=== PATIENT | female | born 1945 | race Caucasian/White ===

== ENCOUNTER → 2016-08-04 | Outpatient (CLI) | payer OTHER ==
[~2016-08-04] MED LIST: BENTYL10 MG PO; CALCIUM500 MG PO; CELEXA20 MG PO; COLACE100 MG PO; HYDROCODON-ACE1 EAC5 PO; HYDROCODON-ACE1 EAC7 PO; HYDROCODON-ACE1 EACH PO; HYDROCODONE-AP1 EAC6 PO; HYDROCODONE-APA1 TA1 PO; HYSINGLA ER30 MG PO; LEXAPRO20 MG PO; LIDODERM 5%1 PATC1 TRANSDERM; LIPITOR10 MG PO; LISINOPRIL; LISINOPRIL20 MG PO; MEDROLDOSEPACK PO; MIRALAX255 GM PO; NAPROSYN500 MG PO; NORCO 10-325 T1 EACH PO; NORCO 5-325 TA1 EACH PO; OSELB75 PO; OXYCODONE HCL E10 MG PO; OXYCONTIN10 M1 PO; PRAVACHOL20 MG PO; PRAVASTATIN PO; PRINIVIL40 MG PO; PROVENTIL HFA6.7 G1 INH; VERAPAMIL ER180 M1 PO; VITAMIN B COMP1 EACH PO; ZOCOR
== END ==
LOC: ULTRA 11:54
DX: E04.1 Nontoxic single thyroid nodule (principal)

== ENCOUNTER → 2016-11-03 | Outpatient (CLI) | payer OTHER | LOC: RAD 14:09 | DX: Z12.31 Encounter for screening mammogram for malignant neoplasm of breast (principal) ==

== ENCOUNTER → 2016-12-13 | Outpatient (CLI) | payer OTHER ==
[~2016-12-13] VITALS: Ht 162.6 cm; Wt 81.8 kg
[~2016-12-13] MED LIST changes: +OMEGA-31000 M1 PO
--- NOTE | ~2016-12-13 | HPC ---
[facility] [place] [address] PAIN MANAGEMENT CONSULTATION Name: NICOLE DUKE Room #: REG ANABELA Sneha.#: [id number] Admission: 12/13/16 Attend Phys: Saran Bob MD Discharge: Date of : 47 Report #: [id number] THIS REPORT FOR: //name// CC: Wilner Bob DATE OF SERVICE: 12/13/2016 DATE OF REGISTRATION: 12/13/2016. REASON FOR VISIT: Followup visit for chronic low back pain, management of high risk medication. HISTORY OF PRESENT ILLNESS: The patient returns to pain clinic today for renewal of her pain medication. She takes about 60 hydrocodone per month, and I provided her with medication under terms of an opioid agreement. Medication helps quite a bit, and she is cautious of its use. We had a long discussion today about the hardships she is currently undergoing. Her of 44 years is going blind. She is unable to get around. She is gaining more weight. She loves him dearly, and he has a kind and gentle soul, but it is hard for her to watch him go through this, and it is also hard for her physically to care for him. We talked about ways that she can get support both emotionally and physically in the home. Her health has otherwise been good. No other medical conditions or problems since her last visit here. PHYSICAL EXAMINATION: VITAL SIGNS: Blood pressure 135/57, heart rate 65, BMI is 31.0. EXTREMITIES: She moves easily from sitting to standing position, ambulates without difficulty. She scores her pain as 2 today. BACK: Range of motion of the spine is fine. She has some localized tenderness. IMPRESSION: Chronic low back pain without radiculopathy. RECOMMENDATIONS: 1. Continue with hydrocodone 1-2 tablets a day as needed for severe pain. 2. Follow up in the pain clinic in 3 months. By: [id number] Saran Bob MD /nt
[2016-12-13 14:20] VITALS: BP 135/57
== END ==
LOC: PAIN 06:16
DX: G89.29 Other chronic pain (principal); M54.5 Low back pain

== ENCOUNTER → 2017-03-10 | Outpatient (CLI) | payer OTHER ==
[~2017-03-10] VITALS: Ht 162.6 cm; Wt 81.8 kg
--- NOTE | ~2017-03-10 | HPC ---
[facility] [place] [address] PAIN MANAGEMENT CONSULTATION Name: NICOLE DUKE Room #: REG ANABELA HooverGerald#: [id number] Admission: 03/10/17 Attend Phys: Saran Bob MD Discharge: Date of : 47 Report #: [id number] THIS REPORT FOR: //name// CC: Wilner Bob DATE OF SERVICE: 03/10/2017 Followup visit for chronic back pain. The patient returns to pain clinic today in followup for medication management. She has done very well with the small amount of hydrocodone. I provided for her 1 tablet q. 4 hours and she takes anywhere from 1 to 2 tablets, allowed 6 tablets a day. She rarely takes more than 2. Pain score with medications 3/10. She is able to do most of her activities of daily living with greater ease. In addition to her back pain, she has some numbness and tingling in her legs, but this is not constant. MEDICATIONS: Reviewed and reconciled. ALLERGIES: None. PHYSICAL EXAMINATION: GENERAL: She is pleasant, alert and oriented, without signs of overmedication. VITAL SIGNS: Her blood pressure is 138/63, heart rate 65, respirations 20. BMI is 31. MUSCULOSKELETAL: She has mild back pain across the lumbosacral segment with pain with back flexion and extension. X-rays reviewed showed extensive spondylosis and curvature subluxations. Stenosis is also noted. IMPRESSION: 1. Chronic low back pain with radiculopathy. 2. Management of high risk medication. PLAN: I renewed her hydrocodone for her at 180 tablets 1 tablet q. 4 hours as needed for pain. Plan is to follow up in the pain clinic as needed for additional medication. It should be anywhere between the next 2-3 months. The importance of our opioid agreement was reviewed and the importance of [facility] [address] [place] [address] PAIN MANAGEMENT CONSULTATION Name: NICOLE DUKE Room #: REG CLI [facility].#: [id number] Admission: 03/10/17 Attend Phys: Saran Bob MD Discharge: Date of : 46 Report #: [id number] safeguarding medication discussed. Urine drug screen has been performed in the past and is appropriate for medications provided through the clinic. By: [id number] Saran Bob MD /nt
[2017-03-10 08:22] VITALS: BP 138/63
== END | disposition home or self-care (01) ==
LOC: PAIN 06:59
DX: M47.20 Other spondylosis with radiculopathy, site unspecified (principal); G89.29 Other chronic pain

== ENCOUNTER → 2017-06-24 | Outpatient (CLI) | payer OTHER ==
[~2017-06-24] VITALS: Ht 162.6 cm; Wt 79.4 kg
--- NOTE | ~2017-06-24 | HPC ---
[facility] [place] [address] [place] [address] PAIN MANAGEMENT CONSULTATION Name: SRIKANTHNICOLE WAYNEMONIQUE Room #: REG ANABELA Sarmiento#: [id number] Admission: 06/24/17 Attend Phys: Vitaly Hargrove DO Discharge: Date of : 46 Report #: [id number] THIS REPORT FOR: //name// CC: Wilner Hargrove HISTORY OF PRESENT ILLNESS: The patient is a delightful 72-year-old female typically treated by Dr. Saran Bob for symptomatic lumbar radiculopathy status post decompressive laminectomy requiring complex medication management. She was last seen in the pain clinic on 03/10/2017, continued hydrocodone 5/325. She uses this very infrequently, her last prescription was lasted about 3-1/2 months. She still has about 10 tablets left. She notes ongoing axial back pain status post decompressive laminectomy. Fortunately radicular symptoms were improved after her surgery. She notes pain today is at 3 on VAS. Primarily, a low back with some numbness in the legs, not constant and pain is exacerbated with standing and walking. PHYSICAL EXAMINATION: GENERAL: Shows 72-year-old female. VITAL SIGNS: BMI is 30 kilograms per meter squared. Vital signs stable as noted in the EMR. MUSCULOSKELETAL: Rises from chair using armrest. Gait is actually fairly tandem. A well-healed very small midline surgical scar compatible with the low lumbar, minimally invasive decompressive laminectomy. Lower extremity strength is symmetric. Straight leg raise negative. We reviewed the fact that opiate medications are being used to provide analgesia adequate to support activities of daily living, not attempting to achieve a specific pain score on the 0-10 Visual Analog Scale. The current opiate medications are providing sufficient analgesia to allow the patient to participate in activities of daily living. The patient is not exhibiting any aberrant behavior suggestive of drug diversion. The patient is not having any adverse reactions to medications. The patient is not suffering from daytime somnolence or mental acuity changes. The patient is managing opiate-induced constipation with appropriate rlyo-mhm-lbfytux agents and dietary considerations. The patient was counseled on concern for caution with operating a motor vehicle while using opiate medications. A physical exam was performed and the patient's functional status was evaluated. All patients with back pain were advised against the bed rest greater than 4 days and were advised to return to normal activities. Pain score assessment was noted and the treatment plan was reviewed with the patient. All current medications, both prescribed and OTC were reviewed and reconciled on the electronic medical record. Tobacco screening was accomplished and smoking cessation was advised when indicated. BMI was noted and diet/exercise modification was recommended for all patients following outside normal [address] [address] PAIN MANAGEMENT CONSULTATION Name: NICOLE DUKE Room #: REG Adeline Sarmiento#: [id number] Admission: 06/24/17 Attend Phys: Vitaly Hargrove DO Discharge: Date of : 46 Report #: [id number] parameters. I reviewed with the patient today their responsibilities to safeguard prescription medications, reviewed their responsibility to utilize medications only as prescribed by the physician. They are to seek and receive pain medications only from 1 physician group ( [facility]). They are to use 1 pharmacy and keep the clinic informed if they change pharmacies. Their responsibilities include making followup visits in a timely fashion and to avoid abrupt discontinuation of medication usage. Their responsibilities further include bringing their medications (bottles from the pharmacy with residual pills) to the visit for possible confirmation of pill counts and the patient understands it is their responsibility to submit to random drug screens to ensure both that the medications prescribed are present, and that no other controlled substances are present. All prescriptions provided today were generated electronically. ASSESSMENT AND RECOMMENDATIONS: Chronic axial back pain, lumbar radiculopathy, status post decompressive laminectomy, stable on very low dose medication. I have taken the liberty of renewing her prescription for hydrocodone 5/325 stating one tablet up to q. 4 hours p.r.n., enabling 180 tablets. Typically, this will last for the patient 3-1/2 to 4 months. Follow up at that time, earlier if needed. <ELECTRONICALLY SIGNED> By: Vitaly Hargrove DO 06/29/17 0808 [id number] [id number] Vitaly Hargrove DO /nt
[2017-06-24 14:34] VITALS: BP 109/62
== END ==
LOC: PAIN 07:05
DX: M54.16 Radiculopathy, lumbar region (principal); Z79.899 Other long term (current) drug therapy

== ENCOUNTER → 2017-07-20 | Outpatient (CLI) | payer OTHER ==
[~2017-07-20] MED LIST changes: +BENTYL 10 MG CA10 M1 PO; +OMEPRAZOLE 20 M20 M1 PO
== END ==
LOC: RAD 10:48
DX: M17.12 Unilateral primary osteoarthritis, left knee (principal); M25.462 Effusion, left knee

== ENCOUNTER → 2017-10-13 | Outpatient (CLI) | payer OTHER ==
[~2017-10-13] VITALS: Ht 162.6 cm; Wt 79.4 kg
[~2017-10-13] MED LIST changes: -BENTYL 10 MG CA10 M1 PO
--- NOTE | ~2017-10-13 | HPC ---
[facility] [address] [place] [address] PAIN MANAGEMENT CONSULTATION Name: NICOLE DUKE Room #: REG ANABELA Torsten#: [id number] Admission: 10/13/17 Attend Phys: Saran Bob MD Discharge: Date of : 46 Report #: [id number] THIS REPORT FOR: //name// CC: LEENA Bob DATE OF SERVICE: 10/13/2017 DATE OF REGISTRATION: 10/13/2017 Followup visit for chronic medication management. The patient returns to pain clinic today in followup. She last saw Dr. Hargrove in June in my absence. I have been treating for low back pain with radiculopathy with an occasional injection and she has also been receiving medication under terms of written opioid agreement. It has been some time since she has had a drug test and we performed a buccal testing today for the record. She uses hydrocodone. She is allowed to use up to 6 tablets a day, but she conscientiously tries to keep it down many times to as low as 2. I have agreed to provide her with 180 tablets to get her through the month. She has chronic caregiver. She has cared for family all of her life and is now caring for nearly blind and her rayiyb-fx-clx who is in her 90s. She has also provided care for stepdaughter. The care at home is loving but is exhausting. She repeatedly said today that the work that she does at home to help care for her is something that she does not feel obligated, but she was tearful in describing how difficult it is for her. She has had no rest. Her pain intensity with medication is a 2/10. Pain is worse with weightbearing activities and standing and walking. She has to do some lifting at home. This also exacerbates pain. She has osteoarthritis in the right and left knee. She has had 3 injections in her left knee at Dr. Cruz's office and this has improved her knee pain quite a bit. This has made her less reliant on pain medication. She does not use tobacco or alcohol. Her functional assessment tool is 22/70 and she has low risk of addiction. She is hypertensive and Dr. Cruz provides medication as noted from the electronic medical record. No changes were made in any medication today, but I did renew her hydrocodone. Her MME maximum is 60. Average daily MME is 20. PHYSICAL EXAMINATION: 5 feet 4 inches, blood pressure 125/63, heart rate 64. She has a BMI of 30. Her affect today is slightly depressed. She has pain [address] [address] PAIN MANAGEMENT CONSULTATION Name: NICOLE DUKE Room #: REG ANABELA Sarmiento#: [id number] Admission: 10/13/17 Attend Phys: Saran Bob MD Discharge: Date of : 46 Report #: [id number] across her low back. She has tenderness in the spine. She has a small midline scar from previous surgery. She has some straight leg raising tightness, but no sharp pains radiating into the leg at this time. Radiculopathy seems to be quiet. She has uylz-po-dndzzllg tenderness with crepitus of the left knee. IMPRESSION: 1. Chronic back pain with intermittent radiculopathy. This is pretty well controlled at this time. 2. Osteoarthritis, left knee improved with Dr. Cruz's Synvisc injections. 3. Management of high risk medications. Medications were renewed under terms of our written agreement. Safeguarding medications discussed in detail and I plan to see her back in the pain clinic in 3 months. <ELECTRONICALLY SIGNED> By: Saran Bob MD 10/17/17 1408 [id number] 19 Saran Bob MD /nt
[2017-10-13 14:30] VITALS: BP 125/63
== END ==
LOC: PAIN 07:30
DX: G89.29 Other chronic pain (principal); M54.16 Radiculopathy, lumbar region; M17.12 Unilateral primary osteoarthritis, left knee; Z79.899 Other long term (current) drug therapy

== ENCOUNTER → 2018-01-26 | Outpatient (CLI) | payer OTHER ==
[~2018-01-26] VITALS: Ht 162.6 cm; Wt 82.7 kg
--- NOTE | ~2018-01-26 | HPC ---
[facility] [place] [address] PAIN MANAGEMENT CONSULTATION Name: NICOLE DUKE Room #: REG ANABELA MGeraldGibran.#: [id number] Admission: 01/26/18 Attend Phys: Saran Bob MD Discharge: Date of : 46 Report #: [id number] THIS REPORT FOR: //name// CC: Wilner Bob DATE OF SERVICE: 01/26/2018 Followup visit for low back pain. The patient returns to Pain Clinic today in followup. She is under a lot of stress. She has been caring for her , who is blind and requires a great deal of oversight. Fortunately, he does not have any dementia or other cognitive issues. The strain of being a caregiver is hard on her and makes her back pain worse. We talked about the psychosocial effects of chronic pain. She scores her pain intensity is a 4/10, worsened by long distance walking, much worse in the morning. In addition, she has comorbidities including irritable bowel syndrome, GERD, bladder cancer and has had a laminectomy performed by Dr. Combs in 2016. PHYSICAL EXAMINATION: Today, she is moderately depressed. Her blood pressure is 123/67, heart rate 67, respirations 16, BMI is 31. She has pain across her low back and tenderness. She has some difficulty with straight leg raising and some radiculopathy. She has responded to epidural injections in the past. IMPRESSION: 1. Chronic low back pain with radiculopathy. 2. Situational depression. RECOMMENDATIONS: We will continue her medication for pain, which she takes. Currently has hydrocodone 2 tablets up to 3 times a day for a total of 6 tablets. She is instructed to use the lowest effective dose and she may reduce it by up to 50% or less if she can. In the past, her MME has varied between 60 maximum and 10-20 morphine milligram equivalents per day. I spent about 25 minutes with her counseling. I talked about ways if she could find some social support for her caregiver circumstances. She could hire someone in. I would like for her to try and get out of the house at least a few times a week, so she does something on her own and for herself. We talked about judaism as a source of comfort. We also talked about [facility], the free programs that provide support for people with medical conditions both psychological and physical. She is going to look to the [facility] and [address] [address] PAIN MANAGEMENT CONSULTATION Name: NICOLE DUKE Room #: REG ANABELA Sarmiento#: [id number] Admission: 01/26/18 Attend Phys: Saran Bob MD Discharge: Date of : 47 Report #: [id number] if some of those programs including [facility] and some of the emotional and spiritual stress programs might be of benefit to her. I plan to see her back in the Pain Clinic in 3 months. By: [id number] Saran Bob MD /shon
[2018-01-26 12:44] VITALS: BP 123/67
== END ==
LOC: PAIN 06:13
DX: M54.16 Radiculopathy, lumbar region (principal); G89.29 Other chronic pain; F43.21 Adjustment disorder with depressed mood

== ENCOUNTER → 2018-05-04 | Outpatient (CLI) | payer OTHER ==
[~2018-05-04] VITALS: Ht 162.6 cm; Wt 83.5 kg
[~2018-05-04] MED LIST changes: +BENTYL 10 MG CA10 M1 PO
--- NOTE | ~2018-05-04 | HPC ---
[facility] [address] [place] [address] PAIN MANAGEMENT CONSULTATION Name: SRIKANTHNICOLE TONEMONIQUE Room #: REG [facility] Torsten#: [id number] Admission: 05/04/18 Attend Phys: Lillie Leung Discharge: Date of : 46 Report #: [id number] THIS REPORT FOR: //name// CC: Lillie Cruz DATE OF SERVICE: 05/04/2018 REASON FOR VISIT: Followup visit today for her chronic low back pain. HISTORY OF PRESENT ILLNESS: The patient returns to the pain clinic today for followup for her medication for her lower back pain. She is under quite a bit of stress. She has recently placed her wxudbg-uq-cpb in a facility and has been caring for her at home, her daughter is not speaking with her and her regarding several issues and she is unable to see the grandchildren at this time, which is causing lots of stress for her. At times, this makes her back pain worse, but she states today that her pain score is 4/10 and states the hydrocodone is very helpful. She feels that it gives her a boost about an hour after she has taken her hydrocodone, which she usually takes at 10:00 a.m. and 4:00 p.m. She is here today for a renewal of that Medicine. ALLERGIES: PENICILLIN, CHROMIUM, ITRACONAZOLE. MEDICATIONS: The patient's current list of medications: Hydrocodone 10/325, Bentyl 10 mg, omeprazole, pravastatin, lisinopril, MiraLax, Lexapro, verapamil. PQRS: 1. History of osteoarthritis in her back. Denies rheumatoid arthritis. 2. Height 5 feet 4 inches, weight 184, the patient's BMI is 31.6. 3. Vital signs 132/63, pulse 68, respirations 16, oxygen is 97%. 4. Pain intensity score is 4/10. 5. Denies falls or dizziness and does not need help walking or understanding. 6. No blood thinners per the patient. 7. Does have a history of hypertension. 8. She has opioid therapy greater than 6 weeks. Therefore, she is on opioid contract. 9. Risk assessment tool is low, 07/20. 10. Functional assessment tool scores . 11. Recreational drug use: The patient denies. She states she never smokes and does not use alcohol. The patient's [place] PDMP have been checked and appropriate with only one prescriber, that being Dr. Bob. No apparent behaviors. We did talk about keeping her medications in a safe place at home. The patient did also bring back numerous scripts for her and yzefvq-ea-tgq and did not want [address] [address] PAIN MANAGEMENT CONSULTATION Name: NICOLE DUKE Room #: REG ANABELA Sarmiento#: [id number] Admission: 05/04/18 Attend Phys: Lillie Leung Discharge: Date of : 47 Report #: [id number] them lying around the house. I told her that was a good move, that anybody can come in the house and take things and so it is best not to have them in her possession at home when they are not using those medications. PHYSICAL EXAMINATION: Today, she is very pleasant, 73-year-old, appears her stated age. Her pain is across her lower back and some tenderness. She does have some difficulty with straight leg raising. IMPRESSIONS: 1. Chronic low back pain with radiculopathy. 2. situational depression. We reviewed the fact that opiate medications are being used to provide analgesia adequate to support activities of daily living, not attempting to achieve a specific pain score on the 0-10 Visual Analog Scale. The current opiate medications are providing sufficient analgesia to allow the patient to participate in activities of daily living. The patient is not exhibiting any aberrant behavior suggestive of drug diversion. The patient is not having any adverse reactions to medications. The patient is not suffering from daytime somnolence or mental acuity changes. The patient is managing opiate-induced constipation with appropriate drak-vls-goecfoc agents and dietary considerations. The patient was counseled on concern for caution with operating a motor vehicle while using opiate medications. A physical exam was performed and the patient's functional status was evaluated. All patients with back pain were advised against the bed rest greater than 4 days and were advised to return to normal activities. Pain score assessment was noted and the treatment plan was reviewed with the patient. All current medications, both prescribed and OTC were reviewed and reconciled on the electronic medical record. Tobacco screening was accomplished and smoking cessation was advised when indicated. BMI was noted and diet/exercise modification was recommended for all patients following outside normal parameters. I reviewed with the patient today their responsibilities to safeguard prescription medications, reviewed their responsibility to utilize medications only as prescribed by the physician. They are to seek and receive pain medications only from 1 physician group ( [facility]). They are to use 1 pharmacy and keep the clinic informed if they change pharmacies. Their responsibilities include making followup visits in a timely fashion and to avoid abrupt discontinuation of medication usage. Their responsibilities further include bringing their medications (bottles from the pharmacy with residual pills) to the visit for possible confirmation of pill counts and the patient understands it is their responsibility to submit to random drug screens to ensure both that the medications prescribed are present, and that no other controlled substances are present. All prescriptions provided today were [facility] [address] [place] [address] PAIN MANAGEMENT CONSULTATION Name: NICOLE DUKE Room #: REG ANABELA Sarmiento#: [id number] Admission: 05/04/18 Attend Phys: Lillie Leung Discharge: Date of : 47 Report #: [id number] generated electronically. PLAN: 1. I spent today discussing the use that her pain medication, hydrocodone 10/325 is very helpful for her, able to help care for her and for herself. She states that she is active around the house and is doing some walking. She denies constipation because she does use MiraLax and denies somnolence with her medication. Her MME dose is low. Therefore, we are able to give her 3 months of her medication. 2. Did spend some time talking also about her home situation and hopefully her and herself will be able to come to terms with her daughter and get things straightened out. The patient was especially worried about this with upcoming holidays, being able to see her grandchild. 3. The patient will be seen again in 3 months, either by myself or by Dr. Saran Bob. The patient was given hydrocodone 10/325 one p.o. q. 4 hours #80 for her chronic back pain. Collaboration today was seen with Dr. Saran Bob. <ELECTRONICALLY SIGNED> By: Lillie Leung 05/05/18 1011 [id number] Lillie Leung /shon
[2018-05-04 08:15] VITALS: BP 132/63
== END ==
LOC: PAIN 06:49
DX: M54.16 Radiculopathy, lumbar region (principal); G89.29 Other chronic pain; F43.21 Adjustment disorder with depressed mood; Z79.899 Other long term (current) drug therapy

== ENCOUNTER → 2018-08-03 | Outpatient (CLI) | payer OTHER ==
[~2018-08-03] VITALS: Ht 162.6 cm; Wt 78.9 kg
[~2018-08-03] MED LIST changes: +K-DUR 20 MEQ T20 MEQ PO; +LASIX 40 MG TAB40 M2 PO
[2018-08-03 10:22] VITALS: BP 118/60
--- NOTE | 2018-08-03 10:32 | NUR ---
Pain Clinic Assessment: 1. History of Osteoarthritis: Not Applicable History of Rheumatoid Arthritis: Not Applicable 2. Height: 5 ft. 4 in. 162.6 cm. Weight: 174.0 lb. oz. 78.926 kg. Patient's BMI: 29.9 3. Vital Signs: BP: 118/60 Pulse: 68 Resp: 14 Temp: 02 Sat: 97 ECG Mon: 4. Pain Intensity: 3, 4 DAILY AVG 5. Fall Risk: Dizziness: N Needs help standing or walking: N Fallen in the last 3 months: N Fall risk comments: 6. Patient on Blood Thinner: None 7. History of Hypertension: Y 8. Opioid Therapy greater than 6 weeks: Y Opiate Contract Signed: 01/28/16 9. Risk Assessment Tool Provided: LOW-1 10. Functional Assessment Tool: 11. Recreational Drug Use: Never Drug Type: Tobacco Use: Never Smoker Tobacco Type: Amount or Packs/day: How Many Years: Alcohol Use: No Frequency: Quant:
== END ==
LOC: PAIN 07:10
DX: M54.5 Low back pain (principal); G89.29 Other chronic pain; Z79.899 Other long term (current) drug therapy

== ENCOUNTER → 2018-09-14 | Outpatient (CLI) | payer OTHER ==
[~2018-09-14] VITALS: Ht 162.6 cm; Wt 80.7 kg
[~2018-09-14] MED LIST changes: +TUMS PO
--- NOTE | ~2018-09-14 | P ---
[facility] [place] [address] [place] [address] PROCEDURE REPORT Name: NICOLE DUKE Room #: REG [facility]#: [id number] Admission: 09/14/18 ������������������ Attend Phys: Nito Kennedy MD Discharge: ������������������ Date of : 47 Report #: [id number] THIS REPORT FOR: //name// CC: Nito Cruz MD DATE OF SERVICE: 09/14/2018 BRIEF HISTORY: The patient is a 73-year-old woman with history of severe esophagitis and dysphagia. She presents now for reevaluation of esophagus after treatment and healing of esophagitis. PREOPERATIVE DIAGNOSES: Esophagitis and dysphagia. POSTOPERATIVE DIAGNOSES: 1. Mild grade A esophagitis. 2. Intermittently seen 2 cm sliding type hiatus hernia. 3. Antral gastritis, erythema. 4. Solid food dysphagia, recurrent. MEDICATIONS: Deep sedation with propofol per Anesthesia. SPECIMEN: Biopsy of distal esophagus, GE junction, rule out Pelaez. ESTIMATED BLOOD LOSS: 3 mL. PROCEDURE: EGD with biopsy, Velazquez dilation. FINDINGS: Prior to propofol sedation, procedure of upper endoscopy was reviewed with the patient as well as potential risks and its complications. She indicates she understands and desires to proceed. DESCRIPTION OF PROCEDURE: With the patient in left lateral decubitus position, the Olympus video endoscope was inserted in cervical esophagus under direct vision without difficulty. Examination of this organ through its entire length revealed normal esophageal mucosa down to the squamocolumnar junction. Previously, she had a severe grade D esophagitis. That has essentially resolved. There were several streaks of erythema and 1-2 punctate erosions at the squamocolumnar junction, but overall the esophagitis has markedly improved with minimal findings, which appear to be healing. There is no obvious endoscopic evidence of Pelaez mucosa. Biopsies were obtained along the squamocolumnar junction. Intermittently, a small 1-2 cm sliding type hiatus hernia was seen. The mucosa in the hernia was normal. The scope was advanced into the stomach, was examined on end view as well as retroflexed views. There is a patchy gastritis which has been noted in the past. No ulcers were seen. [facility] [address] [place] [address] PROCEDURE REPORT Name: NICOLE DUKE Room #: REG [facility] Sneha.#: [id number] Admission: 09/14/18 ������������������ Attend Phys: Nito Kennedy MD Discharge: ������������������ Date of : 47 Report #: [id number] Upon retroflexion, no mass lesions were seen. The mucosa in the proximal stomach was normal. The pylorus, duodenal bulb and postbulbar duodenal sweep were inspected and noted to be unremarkable. At that point, scope was slowly withdrawn and careful circumferential views confirmed the above finding. Upon withdrawal of the scope, no obvious strictures or rings were seen in the distal esophagus, although I believe she has had a Schatzki ring in the past. Following removal of the scope, she was dilated with passage of a 54-Kiswahili Velazquez dilator. CONDITION OF THE PATIENT UPON DISCHARGE: Following procedure, the patient drowsy, aroused, conversant and will be discharged home when fully ambulatory. INSTRUCTIONS TO THE PATIENT AND FAMILY AT THE TIME OF DISCHARGE: Her esophagitis has markedly improved. We will follow up on biopsy, but I do not see any evidence of obvious Pelaez mucosa today. She is to continue her omeprazole 20 mg daily. Suggest she take it 30 minutes prior to meal as she is taking it at bedtime at this time. She is to return for dilation due to recurrent symptoms of dysphagia. She will follow up with Dr. Wilner Cruz and return to see me as needed. ��������������������������������������������� ���������������������������������������� By: ��������������������������������������������� 1040 0523 Nito Kennedy MD /shon
--- NOTE | 2018-09-15 16:07 | PATH ---
[facility] [address] [place] [address] PATHOLOGY RPT PROCEDURE Name: SRIKANTHZOHRA Room #: REG ANABELA Sarmiento#: [id number] ������������������ Admission: 09/14/18 ������������������ Date of : 47 Discharge: Report #: [id number] Path Case #: [id number] [facility] Accession Number: [id number] . 01 Material submitted: . BX DISTAL ESOPHAGUS AND GE JUNCTION, HX SEVERE ESOPHAGITIS, R/O CAMPBELL'S . 01 Clinical history: . Pre-OP DX: Esophagitis, dysphagia Post-OP DX: Gastritis, esophagitis, dysphagia . 02 Diagnosis: Gastroesophageal mucosa, GE junction severe esophagitis rule out Campbell's, endoscopic biopsy: - Gastric cardia-type mucosa with moderate to marked inflammation. - Negative for intestinal metaplasia (Campbell's metaplasia) or dysplasia. - Squamous mucosa with mild esophagitis and changes compatible with reflux. (IUV:rafaela; 09/15/2018) MBGibran/09/15/2018 . 02 Electronically signed: . Monica Mclaughlin MD, Pathologist NPI- [id number] . 01 Gross description: . Received in formalin labeled "Zohra Rangel, BX distal esophagus and GE junction," are 5 segments of navarro soft tissue measuring 0.9 x 0.8 x 0.2 cm in aggregate dimensions and ranging from 0.2 to 0.3 cm in maximum dimension. The specimen is submitted entirely in cassette A1. (TSD; 09/14/2018) TOB/TOB . 02 Pathologist provided ICD-10: K20.8, K21.9 . 02 CPT . 497848 Specimen Comment: A courtesy copy of this report has been sent to Specimen Comment: [phone], . Specimen Comment: Report sent to and Performed at: [address] [id number] MD Jarret Escalante MD Phone: [phone] Performed at: [address] [address] PATHOLOGY RPT PROCEDURE Name: ZOHRA RANGEL JOANN Room #: REG CL Torsten#: [id number] ������������������ Admission: 09/14/18 ������������������ Date of : 46 Discharge: Report #: [id number] Path Case #: [id number] [address] [facility], [place], [place] [id number] MD Monica Mclaughlin MD Phone: [phone]
== END | disposition home or self-care (01) ==
LOC: GI 08:38
DX: K21.0 Gastro-esophageal reflux disease with esophagitis (principal); I10 Essential (primary) hypertension; E78.5 Hyperlipidemia, unspecified; K58.9 Irritable bowel syndrome, unspecified; Z90.710 Acquired absence of both cervix and uterus; Z85.51 Personal history of malignant neoplasm of bladder; F32.9 Major depressive disorder, single episode, unspecified; K44.9 Diaphragmatic hernia without obstruction or gangrene; K29.70 Gastritis, unspecified, without bleeding; Z68.30 Body mass index [BMI] 30.0-30.9, adult; F41.9 Anxiety disorder, unspecified
CPT/HCPCS: 62110; 62900

== ENCOUNTER → 2018-12-07 | Outpatient (CLI) | payer OTHER ==
[~2018-12-07] VITALS: Ht 162.6 cm; Wt 82.1 kg
[2018-12-07 10:37] VITALS: BP 125/52
--- NOTE | 2018-12-07 10:43 | NUR ---
Pain Clinic Assessment: 1. History of Osteoarthritis: Not Applicable History of Rheumatoid Arthritis: Not Applicable 2. Height: 5 ft. 4 in. 162.6 cm. Weight: 181.0 lb. oz. 82.101 kg. Patient's BMI: 31.1 3. Vital Signs: BP: 125/52 Pulse: 64 Resp: 18 Temp: 02 Sat: 97 ECG Mon: 4. Pain Intensity: 2-3 5. Fall Risk: Dizziness: N Needs help standing or walking: N Fallen in the last 3 months: N Fall risk comments: 6. Patient on Blood Thinner: None 7. History of Hypertension: Y 8. Opioid Therapy greater than 6 weeks: Y Opiate Contract Signed: 01/28/16 9. Risk Assessment Tool Provided: LOW-1 10. Functional Assessment Tool: 11. Recreational Drug Use: Never Drug Type: Tobacco Use: Never Smoker Tobacco Type: Amount or Packs/day: How Many Years: Alcohol Use: No Frequency: Quant:
--- NOTE | 2018-12-08 08:21 | HPC ---
[facility] [address] [place] [address] PAIN MANAGEMENT CONSULTATION Name: SRIKANTHNICOLE ROLLINSSAMANTHA Room #: REG [facility] Torsten#: [id number] Admission: 12/07/18 ������������������ Attend Phys: Lillie Leung Discharge: ������������������ Date of : 47 Report #: [id number] THIS REPORT FOR: //name// CC: Lillie Leung Wilner Cruz DATE OF SERVICE: 12/07/2018 CHIEF COMPLAINT: Chronic low back pain. HISTORY OF PRESENT ILLNESS: This is a very pleasant 73-year-old female who returns to the pain clinic today for refill of her medications that she uses to help treat her ongoing chronic low back pain. She tells me that she has had a good 3-1/2 months since her last visit. She is having less stress in her life. She is still working on a plan for a respite for her , so she can go and see her brother in [place]. She tells me she has lost a little bit of weight and is doing quite well. She requires only 1-2 pain pills a day. Does not have any problems with constipation or daytime sleepiness. She tells me that her pain is mostly located in her lower back and in both of her knees, rating it at a 2-3 today, sore is in the morning. The medications have been very helpful. She would just like a refill of her medications today. ALLERGIES: PENICILLIN, CHROMIUM AND SPORANOX. CURRENT LIST OF MEDICATIONS: Pravastatin 20 mg at bedtime, Prinivil 40 mg at bedtime, MiraLax daily, Lexapro 20 mg at bedtime, verapamil 180 mg at bedtime, hydrocodone 10/325 b.i.d., calcium, naproxen 500 mg p.r.n., potassium 20 mEq daily, Lasix 40 mg p.r.n., Bentyl p.r.n. and omeprazole 20 mg at bedtime. PQRS: 1. She has a history of osteoarthritis in her back. Denies any rheumatoid arthritis. 2. Height is 5 feet 4 inches, weight is 181. BMI is 31.1. 3. Vital signs: Blood pressure 125/52, pulse is 64, respirations 18, oxygen sat is 95%. 4. Pain score is 2-3. 5. Fall risk. Denies dizziness. She does not need help with walking or standing. Has not fallen in the last 3 months. 6. The patient is not on any blood thinners. She does have a history of hypertension. 7. Opioid therapy is greater than 6 weeks; therefore, an opioid signed contract is on the chart. 8. Risk assessment tool is low. Functional assessment is 22/70. 9. Recreational drug use, she denies. She is not a smoker and does not drink alcohol. [address] [address] PAIN MANAGEMENT CONSULTATION Name: NCIOLE DUKE JOANN Room #: REG ANABELA Sarmiento#: [id number] Admission: 12/07/18 ������������������ Attend Phys: Lillie Leung Discharge: ������������������ Date of : 47 Report #: [id number] We did check the prescription monitoring system. The patient is filling appropriately for her medications. There is a urine drug screen on the chart that is appropriate. The patient tells me she does safeguard her medications since she does have people caring for her in her house, they are locked up. PHYSICAL EXAMINATION: GENERAL: This is a very pleasant 73-year-old female who appears her stated age. Placing her pain score at 2-3 today. She is alert and orientated and her affect is appropriate. HEENT: Normocephalic, atraumatic. Extraocular eye muscles are intact. Mucous membranes are moist. Hearing is adequate. MUSCULOSKELETAL: She has some tenderness across the lower back. Her lower extremity strength is judged to be 5/5 in all major muscle groups. She does complain of bilateral knee tenderness. The patient walks with a slightly antalgic gait. IMPRESSION: 1. Chronic low back pain with radiculopathy. 2. Situational depression. 3. Complex medical management under terms of written opioid agreement. We reviewed the fact that opiate medications are being used to provide analgesia adequate to support activities of daily living, not attempting to achieve a specific pain score on the 0-10 Visual Analog Scale. The current opiate medications are providing sufficient analgesia to allow the patient to participate in activities of daily living. The patient is not exhibiting any aberrant behavior suggestive of drug diversion. The patient is not having any adverse reactions to medications. The patient is not suffering from daytime somnolence or mental acuity changes. The patient is managing opiate-induced constipation with appropriate rbtn-vji-tdcxufj agents and dietary considerations. The patient was counseled on concern for caution with operating a motor vehicle while using opiate medications. A physical exam was performed and the patient's functional status was evaluated. All patients with back pain were advised against the bed rest greater than 4 days and were advised to return to normal activities. Pain score assessment was noted and the treatment plan was reviewed with the patient. All current medications, both prescribed and OTC were reviewed and reconciled on the electronic medical record. Tobacco screening was accomplished and smoking cessation was advised when indicated. BMI was noted and diet/exercise modification was recommended for all patients following outside normal parameters. I reviewed with the patient today their responsibilities to safeguard prescription medications, reviewed their responsibility to utilize medications [address] [place] [address] PAIN MANAGEMENT CONSULTATION Name: NICOLE DUKE Room #: REG ANABELA Sneha.#: [id number] Admission: 12/07/18 ������������������ Attend Phys: Lillie Leung Discharge: ������������������ Date of : 47 Report #: [id number] only as prescribed by the physician. They are to seek and receive pain medications only from 1 physician group ( [facility]). They are to use 1 pharmacy and keep the clinic informed if they change pharmacies. Their responsibilities include making followup visits in a timely fashion and to avoid abrupt discontinuation of medication usage. Their responsibilities further include bringing their medications (bottles from the pharmacy with residual pills) to the visit for possible confirmation of pill counts and the patient understands it is their responsibility to submit to random drug screens to ensure both that the medications prescribed are present, and that no other controlled substances are present. All prescriptions provided today were generated electronically. PLAN: 1. We discussed treatment options with the patient today. The patient tells me that she is doing quite well, still trying to find help for her , so she can have a respite and go see her family in [place], but she feels like she is getting closer to getting to go on this trip. 2. The patient's hydrocodone 10/325 allows her to do work around the house and take care of her and keep active herself. Prescriptions given today for #80, which is a 3-month supply of this medication that she takes 1-2 tablets a day. 3. Dr. Saran Bob did come and see the patient as well today and collaborated care. The patient will return in 3 months as needed for medication refill. ��������������������������������������������� <ELECTRONICALLY SIGNED> ���������������������������������������� By: Lillie Leung ��������������������������������������������� 12/08/18 0821 1432 0540 Lillie Leung /nt
== END ==
LOC: PAIN 06:46
DX: M54.5 Low back pain (principal); M54.10 Radiculopathy, site unspecified; G89.29 Other chronic pain; Z79.891 Long term (current) use of opiate analgesic; Z79.899 Other long term (current) drug therapy; Z88.0 Allergy status to penicillin; Z88.8 Allergy status to other drugs, medicaments and biological substances; F43.21 Adjustment disorder with depressed mood

== ENCOUNTER → 2019-03-29 | Outpatient (CLI) | payer OTHER ==
[~2019-03-29] VITALS: Ht 162.6 cm; Wt 83.1 kg
[~2019-03-29] MED LIST changes: +STOOL SOFTENER100 MG PO
[2019-03-29 10:46] VITALS: BP 132/63
--- NOTE | 2019-03-29 11:07 | NUR ---
Pain Clinic Assessment: 1. History of Osteoarthritis: Not Applicable History of Rheumatoid Arthritis: Not Applicable 2. Height: 5 ft. 4 in. 162.6 cm. Weight: 183.2 lb. oz. 83.099 kg. Patient's BMI: 31.4 3. Vital Signs: BP: 132/63 Pulse: 62 Resp: 18 Temp: 02 Sat: 97 ECG Mon: 4. Pain Intensity: 2 5. Fall Risk: Dizziness: N Needs help standing or walking: N Fallen in the last 3 months: N Fall risk comments: 6. Patient on Blood Thinner: None 7. History of Hypertension: Y 8. Opioid Therapy greater than 6 weeks: Y Opiate Contract Signed: 01/28/16 9. Risk Assessment Tool Provided: LOW-1 10. Functional Assessment Tool: 11. Recreational Drug Use: Never Drug Type: Tobacco Use: Never Smoker Tobacco Type: Amount or Packs/day: How Many Years: Alcohol Use: No Frequency: Quant:
--- NOTE | 2019-04-03 09:10 | HPC ---
[facility] [address] [place] [address] PAIN MANAGEMENT CONSULTATION Name: SRIKANTHNICOLE TONEMONIQUE Room #: REG Adeline Sarmiento#: [id number] Admission: 03/29/19 ������������������ Attend Phys: Lillie Leung Discharge: ������������������ Date of : 47 Report #: [id number] THIS REPORT FOR: //name// CC: Lillie Leung Wilner Cruz DATE OF SERVICE: 03/29/2019 CHIEF COMPLAINT: Chronic low back pain. HISTORY OF PRESENT ILLNESS: This is a very pleasant 74-year-old female who returns to the pain clinic today for refill of her medications she takes for her ongoing low back pain. The patient informs me that she takes an average of 1-2 tablets a day of her hydrocodone. She finds that by taking that in the early mornings that it is very beneficial in controlling her pain and unless she is extremely active. She is able to tolerate 1 a day. This does help her low back pain as well as her chronic knee pain, rating it at 2/10 today. She denies problems with constipation because she does suffer from irritable bowel syndrome as well, but does on occasion take MiraLax. She would like refills of these medications today. The patient does tell me that her is in a rehab facility. She has been caring for him at home, but he is continuing to have health issues. He is becoming weaker and weaker and is at a rehabilitation hospital for therapy. She does go and see him several times a day. This is given her respite at home, though she has been seeing him 2 times a day every day. She is trying to consider what the plans will be when he is discharged whether she is able to bring him home. She feels saddened by the fact that he may never come home again or will he go to a long-term facility. She is struggling with these issues today. ALLERGIES: PENICILLIN, CHROMIUM AND SPORANOX. CURRENT LIST OF MEDICATIONS: Stool softener, hydrocodone 10/325 up to b.i.d., Tums, naproxen, potassium, Lasix, Bentyl, omeprazole, Pravachol, Prinivil, MiraLax, Lexapro and verapamil. PQRS: 1. 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 Denies any rheumatoid arthritis. 2. Height is 5 feet 4 inches, weight is 183, BMI is 31. 3. Vital signs 132/63, pulse is 62, respirations 18, oxygen sat is 97. 4. Pain score is 2/10. 5. Denies dizziness, does not need help walking or standing, has not fallen in the last 3 months. 6. The patient is not on any blood thinners, but does take medicine for [address] [address] PAIN MANAGEMENT CONSULTATION Name: NICOLE DUKE Room #: REG ANABELA Sarmiento#: [id number] Admission: 03/29/19 ������������������ Attend Phys: Lillie Leung Discharge: ������������������ Date of : 47 Report #: [id number] hypertension. 7. Opioid therapy is greater than 6 weeks; therefore, an opioid signed contract is on the chart. Risk assessment tool is low. Functional assessment is 22/70. 8. Recreational drug use, she denies. She is not a smoker and does not drink alcohol. According to the prescription monitoring system, the patient is filling appropriately for her medications. There is a drug screen on the chart as well is appropriate for her medications. PHYSICAL EXAMINATION: GENERAL: This is a very pleasant 74-year-old female that appears her stated age, placing her current pain score 2/10 today. She is alert and orientated. Her affect is appropriate even saddened throughout some of our discussion today. HEENT: Normocephalic, atraumatic. Extraocular eye muscles are intact. Mucous membranes are moist. MUSCULOSKELETAL: She has tenderness across her lumbar spine. Her lower extremity strength judged to be 5/5 in all major muscle groups. She also complains of bilateral knee tenderness, worse with standing. She does walk with a slightly antalgic gait. Her lower extremity strength judged to be 5/5 in all major muscle groups. IMPRESSION: 1. Chronic low back pain with radiculopathy. 2. Situational depression. 3. Management of high risk medications under terms of written opioid agreement. We reviewed the fact that opiate medications are being used to provide analgesia adequate to support activities of daily living, not attempting to achieve a specific pain score on the 0-10 Visual Analog Scale. The current opiate medications are providing sufficient analgesia to allow the patient to participate in activities of daily living. The patient is not exhibiting any aberrant behavior suggestive of drug diversion. The patient is not having any adverse reactions to medications. The patient is not suffering from daytime somnolence or mental acuity changes. The patient is managing opiate-induced constipation with appropriate jezm-ldz-rofdyqh agents and dietary considerations. The patient was counseled on concern for caution with operating a motor vehicle while using opiate medications. A physical exam was performed and the patient's functional status was evaluated. All patients with back pain were advised against the bed rest greater than 4 days and were advised to return to normal activities. Pain score assessment was noted and the treatment plan was reviewed with the patient. All current medications, both prescribed and OTC were reviewed and reconciled on the electronic medical record. Tobacco screening was accomplished and smoking cessation was advised when indicated. BMI was noted and diet/exercise [facility] [address] [place] [address] PAIN MANAGEMENT CONSULTATION Name: NICOLE DUKE Room #: REG ANABELA Sneha.#: [id number] Admission: 03/29/19 ������������������ Attend Phys: Lillie FRANSISCO Leung Discharge: ������������������ Date of : 47 Report #: [id number] modification was recommended for all patients following outside normal parameters. I reviewed with the patient today their responsibilities to safeguard prescription medications, reviewed their responsibility to utilize medications only as prescribed by the physician. They are to seek and receive pain medications only from 1 physician group ( [facility]). They are to use 1 pharmacy and keep the clinic informed if they change pharmacies. Their responsibilities include making followup visits in a timely fashion and to avoid abrupt discontinuation of medication usage. Their responsibilities further include bringing their medications (bottles from the pharmacy with residual pills) to the visit for possible confirmation of pill counts and the patient understands it is their responsibility to submit to random drug screens to ensure both that the medications prescribed are present, and that no other controlled substances are present. All prescriptions provided today were generated electronically. PLAN: 1. We discussed treatment options with the patient today. The patient feels that the hydrocodone is very beneficial taking 1-2 tablets a day depending on her activity. Scripts given for #180 of hydrocodone 10/325. This is a 3-4 months' supply for this patient. 2. 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 3. We also talked about the possibility of a Respite for her, going to see her brother in [place]. She has been talking about this for quite some time. I explained to her that this may be her opportunity to have some time away when he is being very well cared for in his rehabilitation center. She voices understandings and will think about that. 4. Dr. Saran Bob did come and see the patient and collaborated care today. The patient will return in 3-4 months as needed for medications. ��������������������������������������������� <ELECTRONICALLY SIGNED> ���������������������������������������� By: Lillie Leung ��������������������������������������������� 04/03/19 0910 1200 57 Lillie Leung /shon
== END ==
LOC: PAIN 06:49
DX: M54.16 Radiculopathy, lumbar region (principal); F43.21 Adjustment disorder with depressed mood; Z79.891 Long term (current) use of opiate analgesic; Z88.0 Allergy status to penicillin; Z88.8 Allergy status to other drugs, medicaments and biological substances; Z79.899 Other long term (current) drug therapy

== ENCOUNTER → 2019-04-30 | Outpatient (CLI) | payer OTHER | LOC: BC 12:44 | DX: Z12.31 Encounter for screening mammogram for malignant neoplasm of breast (principal) ==

== ENCOUNTER → 2019-07-05 | Outpatient (CLI) | payer OTHER | LOC: ULTRA 09:44 | DX: N64.4 Mastodynia (principal) ==

== ENCOUNTER → 2019-07-23 | Outpatient (CLI) | payer OTHER ==
[~2019-07-23] VITALS: Ht 162.6 cm; Wt 76.7 kg
[2019-07-23 11:00] VITALS: BP 114/59
--- NOTE | 2019-07-23 11:08 | NUR ---
Document wound assessment on appropriate Wound Pressure, Monitor intervention!
--- NOTE | 2019-07-23 11:09 | NUR ---
Pain Clinic Assessment: 1. History of Osteoarthritis: KNEES History of Rheumatoid Arthritis: DENIES 2. Height: 5 ft. 4 in. 162.6 cm. Weight: 169.0 lb. oz. 76.658 kg. Patient's BMI: 29.0 3. Vital Signs: BP: 114/59 Pulse: 64 Resp: 20 Temp: 02 Sat: 97 ECG Mon: 4. Pain Intensity: 2 5. Fall Risk: Dizziness: N Needs help standing or walking: N Fallen in the last 3 months: N Fall risk comments: 6. Patient on Blood Thinner: None 7. History of Hypertension: Y 8. Opioid Therapy greater than 6 weeks: Y Opiate Contract Signed: 01/28/16 9. Risk Assessment Tool Provided: LOW-1 10. Functional Assessment Tool: 11. Recreational Drug Use: Never Drug Type: Tobacco Use: Never Smoker Tobacco Type: Amount or Packs/day: How Many Years: Alcohol Use: No Frequency: Quant:
--- NOTE | 2019-07-24 08:19 | HPC ---
[facility] [place] [address] PAIN MANAGEMENT CONSULTATION Name: SRIKANTHNICOLE ROLLINSSAMANTHA Room #: ASHISH ANABELA Sarmiento#: [id number] Admission: 07/23/19 Attend Phys: Lillie Leung Discharge: Date of : 47 Report #: [id number] THIS REPORT FOR: //name// CC: Lillie Leung Wilner Cruz DATE OF SERVICE: 07/23/2019 CHIEF COMPLAINT: Chronic low back pain. HISTORY OF PRESENT ILLNESS: This is a very pleasant 74-year-old female who returns to the pain clinic today for refill of her hydrocodone. She uses this to help treat her ongoing low back pain. She does also report that she has pain in her bilateral knees. Her pain score today is 2/10. It is a sharp soreness that is worse with prolonged walking or in the morning. She feels that the medications are very beneficial in controlling her pain and she keeps very active taking care of her at home using her medications as well as her Voltaren gel. She reports that she is going to see Dr. Newman at [place] soon for her knee pain. She is afraid that she may need to have knee replacement, but she is starting with her consult first. The patient reports that she recently had the stomach flu. She has not been having any constipation just mostly diarrhea. She feels that it is still not back to normal. She was very careful and staying away from her sick when she was ill with the stomach flu. ALLERGIES: CHROMIUM and SPORANOX and PENICILLIN. CURRENT LIST OF MEDICATIONS: Hydrocodone 10/325 b.i.d. p.r.n., stool softener, calcium, naproxen, potassium, Lasix, Bentyl, omeprazole, pravastatin, lisinopril, MiraLax, Lexapro and verapamil. PQRS: 1. 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 Denies any rheumatoid arthritis. 2. Height is 5 feet 4 inches, weight is 169, BMI is 29. 3. Vital signs; 114/59, pulse is 64, respirations 20, oxygen sat is 97%. 4. Pain score is 2/10. 5. Denies dizziness, does not need help walking or standing, has not fallen in the last 3 months. 6. The patient is not on any blood thinners, but does take medicine for hypertension. Opioid therapy is greater than 6 weeks; therefore, an opioid signed contract is on the chart. Risk assessment tool is low. Functional assessment is 22/70. 7. Recreational drug use, she denies. She is not a smoker and does not drink alcohol. [address] [address] PAIN MANAGEMENT CONSULTATION Name: NICOLE DUKE Room #: REG CLAdeline Sarmeinto#: [id number] Admission: 07/23/19 Attend Phys: Lillie Leung Discharge: Date of : 47 Report #: [id number] According to the prescription monitoring system, the patient is filling appropriately for her medications in a timely fashion. Her morphine equivalent is 20 MMEs per day. PHYSICAL EXAMINATION: GENERAL: This is an alert and orientated 74-year-old pleasant lady who appears her stated age, placing her current pain score 2/10. HEENT: Normocephalic, atraumatic. Extraocular eye muscles are intact. Mucous membranes are moist. ABDOMEN: Tender and bowel sounds are hyperactive. MUSCULOSKELETAL: She has tenderness in her lumbar spine. Her bilateral knees also cause her tenderness and increased pain when standing. She walks with a slightly antalgic gait. Her lower extremity strength judged to be 5/5 in all major muscle groups. IMPRESSION: 1. Chronic low back pain with radiculopathy. 2. Situational depression. 3. Chronic knee pain, possible osteoarthritis. 4. Management of high risk medications under terms of written opioid agreement. We reviewed the fact that opiate medications are being used to provide analgesia adequate to support activities of daily living, not attempting to achieve a specific pain score on the 0-10 Visual Analog Scale. The current opiate medications are providing sufficient analgesia to allow the patient to participate in activities of daily living. The patient is not exhibiting any aberrant behavior suggestive of drug diversion. The patient is not having any adverse reactions to medications. The patient is not suffering from daytime somnolence or mental acuity changes. The patient is managing opiate-induced constipation with appropriate clfw-erk-alqillk agents and dietary considerations. The patient was counseled on concern for caution with operating a motor vehicle while using opiate medications. PLAN: 1. We discussed treatment options with the patient today. The patient is doing quite well on her hydrocodone 10/325 taking 1-2 tablets a day. She finds that this is sufficient pain relief allowing her to participate in all of her activities of daily living and caring for her . We will refill this medication for 180 pills. This is a 3-month supply that her insurance allows her to fill. 2. The patient encouraged to see Dr. Newman for her arthritic knees have been recently causing her more pain. We also encouraged her to use her Voltaren gel [facility] [address] [place] [address] PAIN MANAGEMENT CONSULTATION Name: NICOLE DUKE Room #: ASHISH LacyLoyda#: [id number] Admission: 07/23/19 Attend Phys: Lillie Leung Discharge: Date of : 47 Report #: [id number] as needed 2-3 times a day on her knees. 3. The patient is seen in collaboration with Dr. Saran Bob. <ELECTRONICALLY SIGNED> By: Lillie Leung 07/24/19 0819 [id number] Lillie Leung /nt
== END ==
LOC: PAIN 06:54
DX: M54.5 Low back pain (principal); M54.16 Radiculopathy, lumbar region; F43.21 Adjustment disorder with depressed mood; M25.561 Pain in right knee; M25.562 Pain in left knee; Z79.891 Long term (current) use of opiate analgesic; Z79.899 Other long term (current) drug therapy; Z88.8 Allergy status to other drugs, medicaments and biological substances

== ENCOUNTER → 2019-11-08 | Outpatient (CLI) | payer OTHER ==
--- NOTE | 2019-11-09 07:45 | HPC ---
[facility] [place] [address] PAIN MANAGEMENT CONSULTATION Name: NICOLE DUKE Room #: REG ANABELA Sarmiento#: [id number] Admission: 11/08/19 Attend Phys: Lillie Leung Discharge: Date of : 47 Report #: [id number] THIS REPORT FOR: cc: Wilner Cruz MD, Neal A. MD Hocker, Amanda CNS ~ CC: Saran Bob MD DATE OF SERVICE: 11/08/2019 This is a tele-med appointment. The audio visual device for her visit due to the COVID virus and her being very immunosuppressed and she has been staying home. From 2:00 to 2:17. CHIEF COMPLAINT: Chronic low back pain. HISTORY OF PRESENT ILLNESS: This is a very pleasant 74-year-old female who is visiting with me via audio visual tele-med appointment today due to the COVID virus. Today, she is reporting a pain score of 4/10. She feels that her opioid medications are very beneficial in decreasing her low back pain. She does continue to have some bilateral knee pain as well. She uses Voltaren gel on those areas and finds that beneficial. She had to cancel an [facility] appointment with Dr. Newman due to the COVID virus. She is hopeful that she is able to have that appointment rescheduled in the near future. The patient tells me that her pain is worse with walking long distances and worse in the morning. She is unable to exercise as much as she would like currently because she is unable to leave her for more than a few minutes. She states they are not having the caregiver come into the house do to the COVID virus. Today, she reports she has no issues with constipation or daytime sleepiness as a result of the medications. ALLERGIES: CHROMIUM, SPORANOX AND PENICILLIN. CURRENT LIST OF MEDICATIONS: Hydrocodone 10/325 b.i.d. p.r.n., stool softener, Tums, naproxen, potassium, latex, Bentyl, omeprazole, pravastatin, lisinopril, MiraLax, citalopram and verapamil. PQRS: 1. She has osteoarthritic changes in her knees bilaterally. Denies any rheumatoid arthritis. The patient's height is 5 feet 4 inches per her report. She weighed 174 today. Vital signs were deferred due to a tele-med appointment. 2. The patient's pain score of 4/10. 3. Denies dizziness, does not need help walking or standing, has not fallen in the last [address] [place] [address] PAIN MANAGEMENT CONSULTATION Name: NICOLE DUKE Room #: REG [facility] Torsten#: [id number] Admission: 11/08/19 Attend Phys: Lillie Leung Discharge: Date of : 47 Report #: [id number] 4. The patient is not on any blood thinners, but does take medicine for hypertension. 5. Opioid therapy is greater than 6 weeks; therefore, an opioid signed contract is on the chart. Risk assessment tool is low. Functional assessment is 22/70. 6. Recreational drug use, she denies. She is not a smoker and does not drink alcohol. According to the prescription monitoring system, the patient is filling appropriately for her medications in a timely fashion from Dr. Saran Bob. Her morphine milligram equivalent is 30 MME or below. PHYSICAL EXAMINATION: GENERAL: This is a review of systems due to a tele-med appointment. This is a very pleasant and alert 74-year-old who appears her stated age. She is answering all my questions appropriately, rating her pain score at 4/10 today. MUSCULOSKELETAL: She has a slightly antalgic gait and tenderness in her knees. Her lower extremity strength judged to be 5/5 with her ambulation. IMPRESSION: 1. Chronic low back pain with radiculopathy. 2. Situational depression. 3. Osteoarthritis in bilateral knees. 4. Management of high risk medications under terms of written opioid agreement. We reviewed the fact that opiate medications are being used to provide analgesia adequate to support activities of daily living, not attempting to achieve a specific pain score on the 0-10 Visual Analog Scale. The current opiate medications are providing sufficient analgesia to allow the patient to participate in activities of daily living. The patient is not exhibiting any aberrant behavior suggestive of drug diversion. The patient is not having any adverse reactions to medications. The patient is not suffering from daytime somnolence or mental acuity changes. The patient is managing opiate-induced constipation with appropriate yhxy-nie-faruigi agents and dietary considerations. The patient was counseled on concern for caution with operating a motor vehicle while using opiate medications. PLAN: 1. We discussed treatment options with the patient today. The patient is requesting refills of her hydrocodone. These are very beneficial, enabling her to be as active as she is able to participate in caring for her on a regular basis. We will refill that medication for , #180 with no additional refills. This is a 3-month supply of her medication. 2. The patient is hopeful to have an appointment with her orthopedic doctor regarding her ongoing bilateral knee pain in the near future. [address] [address] PAIN MANAGEMENT CONSULTATION Name: NICOLE DUKE Room #: REG ANABELA LacyLoyda#: [id number] Admission: 11/08/19 Attend Phys: Lillie Leung Discharge: Date of : 47 Report #: [id number] 3. The patient's care given today under collaboration with Dr. Saran Bob via this tele-med conference. <ELECTRONICALLY SIGNED> By: Lillie Leung 11/09/19 0745 [id number] Lillie Leung /nt
== END ==
LOC: TELEPC 07:43
DX: M54.16 Radiculopathy, lumbar region (principal); F32.9 Major depressive disorder, single episode, unspecified; M17.0 Bilateral primary osteoarthritis of knee; F11.20 Opioid dependence, uncomplicated; Z87.891 Personal history of nicotine dependence; Z88.8 Allergy status to other drugs, medicaments and biological substances; Z79.899 Other long term (current) drug therapy

== ENCOUNTER → 2020-02-25 | Outpatient (CLI) | payer OTHER ==
[~2020-02-25] VITALS: Ht 162.6 cm; Wt 81.3 kg
[~2020-02-25] MED LIST changes: +BENEFIBER1 EAC1 PO; +NAPROXEN500 MG PO; +VOLTAREN GEL 1100 G2 TOP
[2020-02-25 10:06] VITALS: BP 126/63
--- NOTE | 2020-02-25 10:22 | NUR ---
Pain Clinic Assessment: 1. History of Osteoarthritis: KNEES History of Rheumatoid Arthritis: DENIES 2. Height: 5 ft. 4 in. 162.6 cm. Weight: 179.3 lb. oz. 81.330 kg. Patient's BMI: 30.8 3. Vital Signs: BP: 126/63 Pulse: 61 Resp: 16 Temp: 02 Sat: 97 ECG Mon: 4. Pain Intensity: 2 AFTER MED 5. Fall Risk: Dizziness: N Needs help standing or walking: N Fallen in the last 3 months: N Fall risk comments: 6. Patient on Blood Thinner: None 7. History of Hypertension: Y 8. Opioid Therapy greater than 6 weeks: Y Opiate Contract Signed: 01/28/16 9. Risk Assessment Tool Provided: LOW-1 10. Functional Assessment Tool: 11. Recreational Drug Use: Never Drug Type: Tobacco Use: Never Smoker Tobacco Type: Amount or Packs/day: How Many Years: Alcohol Use: No Frequency: Quant:
--- NOTE | 2020-02-25 15:32 | HPC ---
[facility] [address] [address] PAIN MANAGEMENT CONSULTATION Name: ZOHRA DUKE Room #: REG [facility] Torsten#: [id number] Admission: 02/25/20 Attend Phys: Lillie Leung Discharge: Date of : 47 Report #: [id number] THIS REPORT FOR: cc: Wilner Cruz MD, Neal A. MD Hocker, Amanda CNS ~ CC: Saran Bob MD DATE OF SERVICE: 02/25/2020 CHIEF COMPLAINT: Chronic low back pain. HISTORY OF PRESENT ILLNESS: This is a very pleasant 75-year-old female who returns to the pain clinic today for a refill of her medications that she uses to help treat her ongoing low back pain. She finds her pain medicine very beneficial, rating her pain score at 2/10 after she has taken her medications in her lower back. She also today is requesting a refill of her Voltaren gel and naproxen. She finds these are helping with her knee pain as well as her ongoing right shoulder pain. Her pain is worse in the mornings and after she has been busy in her house. She denies problems with constipation or daytime somnolence. Zohra does report that her recently . She has been caring for him for several years. She now has been going through his things in the house and taking care of the paperwork. She is hopeful to take some time for herself and take a trip to see her brother in [place] after the COVID virus does subside. He was here for the and stayed with her and then upon returning back to [place], did contract COVID himself, so he is recuperating. She is hopeful in the next few months to get to go and see him. Until then she is taking time for herself and going through things on slowly as she feels up to it. ALLERGIES: CHROMIUM, SPORANOX AND PENICILLIN. CURRENT LIST OF MEDICATIONS: Hydrocodone 10/325 p.r.n., stool softener, calcium, naproxen, potassium, Lasix, Bentyl, omeprazole, Pravachol, lisinopril, MiraLax, Lexapro, verapamil and Voltaren gel. PQRS: 1. She has osteoarthritis in her knees and shoulders. Denies any rheumatoid arthritis. 2. Height is 5 feet 4 inches, weight is 179, BMI is 30. 3. Vital signs 126/63, pulse is 61, respirations 16, oxygen sat is 97, pain score is 2/10. 4. Fall risk. Denies dizziness, does not need help walking or standing, has not fallen in the last 3 months. The patient is not on any blood thinners, but [address] [address] PAIN MANAGEMENT CONSULTATION Name: SRIKANTHZOHRA Room #: [facility] [id number] Admission: 02/25/20 Attend Phys: Lillie Leung Discharge: Date of : 47 Report #: [id number] does take medicine for hypertension. 5. Her opioid therapy is greater than 6 weeks; therefore, an opioid signed contract is on the chart. Risk assessment is low. Functional assessment is 20/70 6. Recreational drug use, she denies. She is not a smoker and does not drink alcohol. According to the prescription monitoring system, the patient is filling appropriately. She does take her medicines sparingly. Her morphine milliequivalent is typically 20 MMEs per day. PHYSICAL EXAMINATION: GENERAL: This is alert and orientated, well-developed, well-nourished 75-year-old female who appears her stated age, placing her current pain score at 2/10 today. HEENT: Normocephalic, atraumatic. Extraocular eye muscles are intact. She is wearing a mask. MUSCULOSKELETAL: She has tenderness in her lumbar spine that does radiate into her legs. Knee pain is positive today with increased range of motion does increase her pain. Her lower extremity strength judged to be 5/5 in all major muscle groups. She has tenderness in her right shoulder and pain is increased with range of motion. Her lower extremity strength judged to be symmetrical at 5/5. IMPRESSION: 1. Chronic low back pain with radiculopathy. 2. Situational depression. 3. Osteoarthritis of the bilateral knees and shoulders. 4. Management of high risk medications under terms of written opioid agreement. We reviewed the fact that opiate medications are being used to provide analgesia adequate to support activities of daily living, not attempting to achieve a specific pain score on the 0-10 Visual Analog Scale. The current opiate medications are providing sufficient analgesia to allow the patient to participate in activities of daily living. The patient is not exhibiting any aberrant behavior suggestive of drug diversion. The patient is not having any adverse reactions to medications. The patient is not suffering from daytime somnolence or mental acuity changes. The patient is managing opiate-induced constipation with appropriate sznj-akp-nhtpmei agents and dietary considerations. The patient was counseled on concern for caution with operating a motor vehicle while using opiate medications. PLAN: 1. We discussed treatment options with the patient today. The patient continues to find her hydrocodone beneficial typically taking 1-2 tablets a day. She believes this may decrease possibly if her pain is decreased some [address] [address] PAIN MANAGEMENT CONSULTATION Name: ZOHRA DUKE Room #: REG [facility] Torsten#: [id number] Admission: 02/25/20 Attend Phys: Lillie Leung Discharge: Date of : 47 Report #: [id number] since her has . She had been caring for him for several years, physically. At times, her pain would increase due to caring for him, but we will continue her current hydrocodone dose of 10/325, #180 will be sent electronically by Dr. Saran Bob. 2. The patient will return in 3 months. At that time, we will reevaluate her current medication usage. 3. I will send electronically her naproxen 500 mg b.i.d., #60 with 2 additional refills and Voltaren gel 2 grams to her upper extremity and lower extremities as needed with 2 additional refills. 4. The patient is seen in collaboration with Dr. Saran Bob who did see the patient as well today. <ELECTRONICALLY SIGNED> By: Lillie Leung 02/25/20 1532 [id number] Lillie Lueng /nt
== END ==
LOC: PAIN 07:01
PROVIDERS: ATTEND Clinical Nurse Specialist Adult Health
DX: M54.16 Radiculopathy, lumbar region (principal); M17.0 Bilateral primary osteoarthritis of knee; G89.29 Other chronic pain; M19.011 Primary osteoarthritis, right shoulder; M19.012 Primary osteoarthritis, left shoulder; F32.9 Major depressive disorder, single episode, unspecified; Z79.891 Long term (current) use of opiate analgesic

== ENCOUNTER → 2020-06-02 | Outpatient (CLI) | payer OTHER ==
[~2020-06-02] VITALS: Ht 162.6 cm; Wt 83.2 kg
[2020-06-02 09:53] VITALS: BP 119/66
--- NOTE | 2020-06-02 10:07 | NUR ---
Pain Clinic Assessment: 1. History of Osteoarthritis: KNEES History of Rheumatoid Arthritis: DENIES 2. Height: 5 ft. 4 in. 162.6 cm. Weight: 183.4 lb. oz. 83.190 kg. Patient's BMI: 31.5 3. Vital Signs: BP: 119/66 Pulse: 65 Resp: 16 Temp: 02 Sat: 97 ECG Mon: 4. Pain Intensity: 2 5. Fall Risk: Dizziness: N Needs help standing or walking: N Fallen in the last 3 months: N Fall risk comments: 6. Patient on Blood Thinner: None 7. History of Hypertension: Y 8. Opioid Therapy greater than 6 weeks: Y Opiate Contract Signed: 01/28/16 9. Risk Assessment Tool Provided: LOW-1 10. Functional Assessment Tool: 11. Recreational Drug Use: Never Drug Type: Tobacco Use: Never Smoker Tobacco Type: Amount or Packs/day: How Many Years: Alcohol Use: No Frequency: Quant:
--- NOTE | 2020-06-03 09:14 | HPC ---
[facility] [place] [address] PAIN MANAGEMENT CONSULTATION Name: NICOLE DUKE Room #: REG ANABELA LacyGeraldGibran.#: [id number] Admission: 06/02/20 Attend Phys: Lillie Leung Discharge: Date of : 47 Report #: [id number] THIS REPORT FOR: cc: Wilner Cruz MD, Neal A. MD Hocker,Lillie MOODY ~ CC: Lillie Bob MD DATE OF SERVICE: 06/02/2020 CHIEF COMPLAINT: Chronic low back pain. HISTORY OF PRESENT ILLNESS: This is a very pleasant 75-year-old female who returns to the pain clinic today for refill of her medications. Today, she is reporting pain in her low back as well as her bilateral knees, worse on the right than the left. Her pain score today is 2/10. It is a dull aching pain, worse with walking for long periods of time or prolonged standing. She feels that overall her medications of hydrocodone and Voltaren gel have been beneficial in helping reduce her pain. The patient does report recently seen Dr. Newman to discuss her knees. She had x-rays taken and did receive a right knee injection. She has found this beneficial in decreasing some of her pain. Presently, she is not planning on having knee replacement surgery. ALLERGIES: CHROMIUM, SPORANOX AND PENICILLIN. CURRENT LIST OF MEDICATIONS: Diclofenac gel, naproxen, Benefiber, hydrocodone 10/325, Stool softener, Bentyl, omeprazole, Pravachol, Prinivil, Lexapro, and verapamil. PQRS: 1. She has osteoarthritic changes in her knees and shoulders. Denies rheumatoid arthritis. 2. Height is 5 feet 4 inches, weight is 183, BMI is 31. Vital signs 119/66, pulse is 65, respirations 16, oxygen sat is 97%. Pain score is 2/10. 3. Fall risk. Denies dizziness, does not need help walking or standing, has not fallen in the last 3 months. The patient is not on any blood thinners, but does take medicine for hypertension. Opioid therapy is greater than 6 weeks; therefore, an opioid signed contract is on the chart. Risk assessment is low. Functional assessment is 70. 4. Recreational drug use, she denies. She is not a smoker and does not drink alcohol. According to the prescription monitoring system, the patient is filling [facility] [address] [place] [address] PAIN MANAGEMENT CONSULTATION Name: NICOLE DUKESAMANTHA Room #: [facility] CenterGerald#: [id number] Admission: 06/02/20 Attend Phys: Lillie Leung Discharge: Date of : 47 Report #: [id number] appropriately in a timely fashion. She is due to fill her meds today. We are collecting a random drug screen on this patient as well. PHYSICAL EXAMINATION: GENERAL: This is alert and orientated, well-developed, well-nourished 75-year-old female who appears her stated age, placing her current pain score 2/10. HEENT: Normocephalic, atraumatic. Extraocular eye muscles are intact. She is wearing a mask. MUSCULOSKELETAL: Increasing knee pain is positive today with range of motion, greater on the right than the left. Pain is elicited with ambulation as well. Her lower extremity strength is symmetrical at 5/5. She has tenderness in her lumbosacral region that radiates into her bilateral legs. IMPRESSION: 1. Chronic low back pain with radiculopathy. 2. Situational depression. 3. 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 4. Management of high risk medications under terms of written opioid agreement. We reviewed the fact that opiate medications are being used to provide analgesia adequate to support activities of daily living, not attempting to achieve a specific pain score on the 0-10 Visual Analog Scale. The current opiate medications are providing sufficient analgesia to allow the patient to participate in activities of daily living. The patient is not exhibiting any aberrant behavior suggestive of drug diversion. The patient is not having any adverse reactions to medications. The patient is not suffering from daytime somnolence or mental acuity changes. The patient is managing opiate-induced constipation with appropriate dqnw-ide-cxvuzjt agents and dietary considerations. The patient was counseled on concern for caution with operating a motor vehicle while using opiate medications. A physical exam was performed and the patient's functional status was evaluated. All patients with back pain were advised against the bed rest greater than 4 days and were advised to return to normal activities. Pain score assessment was noted and the treatment plan was reviewed with the patient. All current medications, both prescribed and OTC were reviewed and reconciled on the electronic medical record. Tobacco screening was accomplished and smoking cessation was advised when indicated. BMI was noted and diet/exercise modification was recommended for all patients following outside normal parameters. I reviewed with the patient today their responsibilities to safeguard prescription medications, reviewed their responsibility to utilize medications only as prescribed by the physician. They are to seek and receive pain medications only from 1 physician group ([facility]). They are to use [address] [address] PAIN MANAGEMENT CONSULTATION Name: NICOLE DUKE Room #: ASHISH Sarmiento#: [id number] Admission: 06/02/20 Attend Phys: Lillie Leung Discharge: Date of : 46 Report #: [id number] pharmacy and keep the clinic informed if they change pharmacies. Their responsibilities include making followup visits in a timely fashion and to avoid abrupt discontinuation of medication usage. Their responsibilities further include bringing their medications (bottles from the pharmacy with residual pills) to the visit for possible confirmation of pill counts and the patient understands it is their responsibility to submit to random drug screens to ensure both that the medications prescribed are present, and that no other controlled substances are present. All prescriptions provided today were generated electronically. PLAN: 1. We discussed treatment options with the patient today. The patient finds the hydrocodone very beneficial, though at times she feels her low back pain is increasing more, but would like to stay with her current regimen. We will have Dr. Bob who did see the patient today. Send electronically her hydrocodone , #180. This typically lasts her 3 months. 2. The patient did find her steroid injection beneficial from Dr. Newman. I did remind the patient that Dr. Bob is able to perform those injections as well. 3. The patient is not in need of naproxen or her Voltaren gel. We will not send refills, but will call those in as she finds she does need them in the future. 4. A urine drug screen was collected. Dr. Saran Bob did see the patient and collaborated care today. <ELECTRONICALLY SIGNED> By: Lillie Leung 06/03/20 0914 [id number] Lillie phillips
== END ==
LOC: PAIN 06:42
PROVIDERS: ATTEND Clinical Nurse Specialist Adult Health
DX: M54.16 Radiculopathy, lumbar region (principal); G89.29 Other chronic pain; F32.9 Major depressive disorder, single episode, unspecified; M17.0 Bilateral primary osteoarthritis of knee; F11.20 Opioid dependence, uncomplicated

== ENCOUNTER → 2020-09-11 | Outpatient (CLI) | payer OTHER ==
[~2020-09-11] VITALS: Ht 162.6 cm; Wt 82.5 kg
[~2020-09-11] MED LIST changes: +VOLTAREN GEL 1100 G1 TOP
[2020-09-11 13:03] VITALS: BP 146/667
--- NOTE | 2020-09-11 13:13 | NUR ---
Pain Clinic Assessment: 1. History of Osteoarthritis: KNEES History of Rheumatoid Arthritis: DENIES 2. Height: 5 ft. 4 in. 162.6 cm. Weight: 181.8 lb. oz. 82.464 kg. Patient's BMI: 31.2 3. Vital Signs: BP: 146/667 Pulse: 66 Resp: 16 Temp: 02 Sat: 97 ECG Mon: 4. Pain Intensity: 4 5. Fall Risk: Dizziness: N Needs help standing or walking: N Fallen in the last 3 months: N Fall risk comments: 6. Patient on Blood Thinner: None 7. History of Hypertension: Y 8. Opioid Therapy greater than 6 weeks: Y Opiate Contract Signed: 01/28/16 9. Risk Assessment Tool Provided: LOW-1 10. Functional Assessment Tool: 11. Recreational Drug Use: Never Drug Type: Tobacco Use: Never Smoker Tobacco Type: Amount or Packs/day: How Many Years: Alcohol Use: No Frequency: Quant:
--- NOTE | 2020-09-11 14:44 | HPC ---
[facility] [address] [place] [address] PAIN MANAGEMENT CONSULTATION Name: NICOLE DUKE Room #: REG PILARAdeline Sarmiento#: [id number] Admission: 09/11/20 Attend Phys: Lillie Leung Discharge: Date of : 47 Report #: [id number] THIS REPORT FOR: cc: Wilner Cruz MD, Neal A. MD Hocker,Lillie Moore DATE OF SERVICE: 09/11/2020 CHIEF COMPLAINT: Chronic low back pain and bilateral knee pain. HISTORY OF PRESENT ILLNESS: This is a 75-year-old female who returns to the pain clinic today for renewal of her opioid medications. Overall, she believes she is doing quite well with her current regimen, averaging 2 tablets of hydrocodone 10/325 a day. Days where she is significantly active, she does require a 3. She denies any constipation issues as a result of her medications. She does report her pain is a dull aching sensation that is worse with walking long distances and worse in the morning. The patient states that her knees have been more bothersome. At our last visit, she had recently had Dr. Newman inject her right knee. She is wondering if it may be time to have that injected again. She has been complaining of some edema around her knees and increasing pain. The patient reports that her wdjhlz-wu-pdn, who was a former patient of ours as well recently . She has been busy dealing with her estate. The patient has been attempting to go to [place] for quite some time, but when her was ill she was unable to see her family. Then began dealing with her xovuyd-eq-viv, so she has planned a trip for mid-October to finally take a trip to [place]. She feels that this date will be in good order by then and she feels like she could finally get away. ALLERGIES: CHROMIUM, SPORANOX AND PENICILLIN. CURRENT LIST OF MEDICATIONS: Hydrocodone 10/325 p.r.n., Voltaren gel, naproxen p.r.n., Benefiber stool softeners, Bentyl, omeprazole, pravastatin, lisinopril, Lexapro, and verapamil. PQRS: 1. She has arthritic changes in her knees and shoulders and back. Denies any rheumatoid arthritis. 2. Height is 5 feet 4 inches, weight is 181, BMI is 31. 3. Vital signs 146/67, pulse is 66, respirations 16, oxygen sat is 97%. 4. Pain score is 4/10. 5. Denies dizziness, does not need assistance with ambulation. Has not fallen in the last 3 months. 6. The patient is not on any blood thinners, but does have history of hypertension. 7. Opioid therapy is greater than 6 weeks; therefore, [place] [address] PAIN MANAGEMENT CONSULTATION Name: NICOLE DUKESAMANTHA Room #: REG Adeline Sarmiento#: [id number] Admission: 09/11/20 Attend Phys: Lillie Leung Discharge: Date of : 47 Report #: [id number] is on the chart. Risk assessment is low. Functional assessment is 20/70. 8. Recreational drug use, she denies. She is not a smoker and does not drink alcohol. According to the prescription monitoring system, the patient is filling appropriately in a timely fashion. Her morphine milliequivalent is 20-30 MMEs per day. There is a drug screen on her chart from May that is appropriate for her medications as well. PHYSICAL EXAMINATION: GENERAL: This is a well-developed, well-nourished 75-year-old female who appears her stated age, placing her current pain score today at 4/10. She is a good historian. HEENT: Normocephalic, atraumatic. Extraocular eye muscles are intact. She is wearing a mask. MUSCULOSKELETAL: She has tenderness in her right knee greater than the left today with slight edema appreciated above her knee joint. The patient does have pain with active range of motion, greater on the right than the left and pain is elicited with ambulation. She does have tenderness in the lumbosacral region. Her lower extremity strength is symmetrical at 5/5. IMPRESSION: 1. Chronic low back pain with radiculopathy. 2. Situational depression. 3. Osteoarthritis affecting her bilateral knees and shoulders, greater on the right knee today. 4. Management of high risk medications under terms of written opioid agreement for scheduled opioids. We reviewed the fact that opiate medications are being used to provide analgesia adequate to support activities of daily living, not attempting to achieve a specific pain score on the 0-10 Visual Analog Scale. The current opiate medications are providing sufficient analgesia to allow the patient to participate in activities of daily living. The patient is not exhibiting any aberrant behavior suggestive of drug diversion. The patient is not having any adverse reactions to medications. The patient is not suffering from daytime somnolence or mental acuity changes. The patient is managing opiate-induced constipation with appropriate uxak-phx-hjyltvh agents and dietary considerations. The patient was counseled on concern for caution with operating a motor vehicle while using opiate medications. PLAN: 1. We discussed treatment options with the patient today. The patient feels her medications are appropriate and would like to continue her hydrocodone 10/325. We will have Dr. Saran Bob send this electronically for #180. This is a 3-month supply of medication for her. [facility] [address] [place] [address] PAIN MANAGEMENT CONSULTATION Name: NICOLE DUKE Room #: REG ANABELA Torsten#: [id number] Admission: 09/11/20 Attend Phys: Lillie Leung Discharge: Date of : 47 Report #: [id number] 2. The patient will continue her Voltaren gel and I will send that electronically. She uses that quite frequently on her knees and shoulder joints. 3. The patient is unsure if she should get the COVID vaccine. She continues to read literature about the different vaccines, though she has signed up to obtain the vaccine. She is still unsure if she will follow through. Currently, she has a relative that is in the hospital with COVID in the [facility]. The patient's care was collaborated by Dr. Saran Bob today. Time spent with the patient today in consultation 15 minutes. Prior to appointment today, I spent time reviewing the chart with pertinent medical documentation involving physical notes and imaging. Time spent reviewing the prescription monitoring system, side effects of medication and sending scripts electronically with the collaborating physician and documentation of at least 10 minutes. Time spent total 25 minutes. <ELECTRONICALLY SIGNED> By: Lillie Leung 09/11/20 1444 [id number] [id number] Lillie Leung /shon
== END ==
LOC: PAIN 06:57
PROVIDERS: ATTEND Clinical Nurse Specialist Adult Health
DX: M54.16 Radiculopathy, lumbar region (principal); F32.9 Major depressive disorder, single episode, unspecified; M17.0 Bilateral primary osteoarthritis of knee; M19.011 Primary osteoarthritis, right shoulder; M19.012 Primary osteoarthritis, left shoulder; F11.20 Opioid dependence, uncomplicated; Z88.8 Allergy status to other drugs, medicaments and biological substances; Z79.899 Other long term (current) drug therapy

== ENCOUNTER → 2020-12-15 | Outpatient (CLI) | payer OTHER ==
[~2020-12-15] VITALS: Ht 162.6 cm; Wt 80.4 kg
[~2020-12-15] MED LIST changes: +DICLOFENAC SOD100 G1 TOP
[2020-12-15 10:27] VITALS: BP 125/53
--- NOTE | 2020-12-15 10:48 | NUR ---
Pain Clinic Assessment: 1. History of Osteoarthritis: KNEES History of Rheumatoid Arthritis: DENIES 2. Height: 5 ft. 4 in. 162.6 cm. Weight: 177.2 lb. oz. 80.377 kg. Patient's BMI: 30.4 3. Vital Signs: BP: 125/53 Pulse: 70 Resp: 18 Temp: 02 Sat: 98 ECG Mon: 4. Pain Intensity: 4 W/MEDS 5. Fall Risk: Dizziness: N Needs help standing or walking: N Fallen in the last 3 months: N Fall risk comments: 6. Patient on Blood Thinner: None 7. History of Hypertension: Y 8. Opioid Therapy greater than 6 weeks: Y Opiate Contract Signed: 01/28/16 9. Risk Assessment Tool Provided: LOW-1 10. Functional Assessment Tool: 11. Recreational Drug Use: Never Drug Type: Tobacco Use: Never Smoker Tobacco Type: Amount or Packs/day: How Many Years: Alcohol Use: No Frequency: Quant:
== END | disposition home or self-care (01) ==
LOC: PAIN 07:13
PROVIDERS: ATTEND Clinical Nurse Specialist Adult Health
DX: M54.16 Radiculopathy, lumbar region (principal); G89.29 Other chronic pain; I10 Essential (primary) hypertension; F43.21 Adjustment disorder with depressed mood; M19.90 Unspecified osteoarthritis, unspecified site; Z98.890 Other specified postprocedural states; Z79.899 Other long term (current) drug therapy; Z79.891 Long term (current) use of opiate analgesic; Z88.0 Allergy status to penicillin

== ENCOUNTER → 2021-02-05 | Outpatient (CLI) | payer OTHER ==
[~2021-02-05] VITALS: Ht 162.6 cm; Wt 83.5 kg
[2021-02-05 11:05] VITALS: BP 123/55
--- NOTE | 2021-02-05 11:23 | NUR ---
Pain Clinic Assessment: 1. History of Osteoarthritis: KNEES SPINE History of Rheumatoid Arthritis: DENIES 2. Height: 5 ft. 4 in. 162.6 cm. Weight: 183.4 lb. oz. 83.530 kg. Patient's BMI: 31.5 3. Vital Signs: BP: 123/55 Pulse: 72 Resp: 18 Temp: 02 Sat: 98 ECG Mon: 4. Pain Intensity: 4 W/MEDS 5. Fall Risk: Dizziness: N Needs help standing or walking: Y Fallen in the last 3 months: N Fall risk comments: 6. Patient on Blood Thinner: None 7. History of Hypertension: Y 8. Opioid Therapy greater than 6 weeks: Y Opiate Contract Signed: 01/28/16 9. Risk Assessment Tool Provided: LOW-1 10. Functional Assessment Tool: 11. Recreational Drug Use: Never Drug Type: Tobacco Use: Never Smoker Tobacco Type: Amount or Packs/day: How Many Years: Alcohol Use: No Frequency: Quant:
== END | disposition home or self-care (01) ==
LOC: PAIN 07:05
PROVIDERS: ATTEND Anesthesiology Pain Medicine
DX: M25.562 Pain in left knee (principal); M17.12 Unilateral primary osteoarthritis, left knee; G89.29 Other chronic pain; I10 Essential (primary) hypertension; M19.90 Unspecified osteoarthritis, unspecified site; Z98.890 Other specified postprocedural states; Z79.899 Other long term (current) drug therapy; Z88.0 Allergy status to penicillin; Z88.8 Allergy status to other drugs, medicaments and biological substances

== ENCOUNTER → 2021-04-24 | Outpatient (CLI) | payer OTHER ==
[~2021-04-24] VITALS: Ht 160 cm; Wt 79.4 kg
[~2021-04-24] MED LIST changes: +ARTHRITIS PAIN100 GM TOP
[2021-04-24 13:42] LABS: HEMATOCRIT 37.3 % (37.0-47.0); HEMOGLOBIN 12.2 gm/dL (12.0-15.0); MCH 28.6 pg (26.0-34.0); MCHC 32.7 g/dL (28.0-37.0); MCV 87.5 fL (80.0-100.0); RBC 4.27 mil/uL (4.20-5.00); RDW 13.4 % (10.5-14.5); WBC 8.5 thou/uL (4.0-11.0)
[2021-04-24 13:48] LABS: URINE BILIRUBIN NEGATIVE (Negative); URINE BLOOD NEGATIVE (Negative); URINE CLARITY CLEAR; URINE COLOR YELLOW; URINE GLUCOSE-RANDOM* NEGATIVE (Negative); URINE KETONES NEGATIVE (Negative); URINE LEUKOCYTES-REFLEX NEGATIVE (Negative); URINE NITRITE-REFLEX NEGATIVE (Negative); URINE PROTEIN (DIPSTICK) NEGATIVE (Negative); URINE SPECIFIC GRAVITY >= 1.030 (1.005-1.035); URINE UROBILINOGEN 0.2 E.U./dl (0.2-1.0)
[2021-04-24 13:55] LABS: ALBUMIN 3.4 g/dL (3.4-5.0); CALCIUM 8.6 mg/dL (8.5-10.1); CREATININE 0.7 mg/dL (0.6-1.0)
[2021-04-24 14:02] LABS: INR 0.93; PROTIME 10.2 Seconds (10.5-12.1)
== END ==
LOC: PAC 11:53
PROVIDERS: ATTEND Orthopaedic Surgery
DX: Z01.812 Encounter for preprocedural laboratory examination (principal)

== ENCOUNTER → 2021-04-30 | Outpatient (CLI) | payer OTHER | LOC: LAB 10:37 | PROVIDERS: ATTEND Student in an Organized Health Care Education/Training Program | DX: Z01.812 Encounter for preprocedural laboratory examination (principal); Z20.822 Contact with and (suspected) exposure to COVID-19 ==

== ENCOUNTER 2021-05-04 06:26 | Inpatient (IN) | payer OTHER ==
[~2021-05-04] VITALS: Ht 162.6 cm; Wt 83.9 kg
[2021-05-04 08:24] VITALS: BP 147/58
[2021-05-04 11:37] VITALS: BP 127/59
--- NOTE | 2021-05-04 12:11 | NUR ---
A/O X 4. 2 L 02 VIA NASAL CANNULA. CLEAR LIQUID DIET-TOLERATING WELL. LEFT KNEE HEMOVAC, DANETTE DRESSING. POLAR PACK IN PLACE. BILATERAL TEDS AND SCDS. PERCOCET GIVEN PRN FOR 9/10 LEFT KNEE PAIN. VERY SLEEPY. RIGHT WRIST IV WITH LP INFUSING @ 100 MLS/HR.
[2021-05-04 15:07] VITALS: BP 131/66
[2021-05-04 19:32] VITALS: BP 138/60
[2021-05-05 02:50] LABS: HEMATOCRIT 26.9 % (37.0-47.0); MCH 28.9 pg (26.0-34.0); MCHC 33.6 g/dL (28.0-37.0); MCV 86.2 fL (80.0-100.0); RBC 3.12 mil/uL (4.20-5.00); RDW 13.2 % (10.5-14.5); WBC 12.3 thou/uL (4.0-11.0)
[2021-05-05 03:26] LABS: CALCIUM 8.5 mg/dL (8.5-10.1); CREATININE 0.7 mg/dL (0.6-1.0); POTASSIUM 4.3 mmol/L (3.5-5.1)
[2021-05-05 04:07] VITALS: BP 153/55
--- NOTE | 2021-05-05 05:15 | NUR ---
RECEIVED CARE OF THIS PATIENT AT 1900. PATIENT ALERT AND ORIENTED X4. REMAINS ON BEDREST FOR NOW. DANETTE DRESSONG ON L KNEE. TEDS, SCD'S, POLAR ICE AND HEMAVAC WELL. IV PATENT WITH FLUIDS INFUSING. SLEPT LITTLE THIS SHIFT.C/O PAIN, MED GIVEN.
--- NOTE | 2021-05-05 08:11 | O ---
[facility] [place] [address] [place] [address] OPERATIVE REPORT Name: NICOLE DUKE Room #: 438-P ADM IN M.R.#: [id number] Admission: 05/04/21 Attend Phys: Parrish Newman MD Discharge: Date of : 47 Report #: [id number] THIS REPORT FOR: cc: Wilner Cruz MD, Neal A. MD Clymer, David J. MD ~ DATE OF SERVICE: 05/04/2021 PREOPERATIVE DIAGNOSIS: End-stage degenerative arthritis, left knee with valgus malalignment. POSTOPERATIVE DIAGNOSIS: End-stage degenerative arthritis, left knee with valgus malalignment. PROCEDURE: Left total knee arthroplasty. SURGEON: Parrish Newman MD HISTORY: This 76-year-old female is somewhat frail, but is still active and living fully independently. She has progressive degenerative arthritis involving both knees with moderate valgus malalignment. Her symptoms are more severe on the left side. She has tried conservative measures without much benefit. She has decided to go ahead with left total knee arthroplasty. DESCRIPTION OF PROCEDURE: The patient was taken to the operating room where she was placed under general anesthesia. A femoral nerve block was also applied. The left lower extremity was meticulously prepped and draped. A thigh tourniquet was applied and inflated to 300 mmHg. An anterior longitudinal skin incision was made. This was carried through subcutaneous tissues and fascia and the medial retinaculum. The patella was reflected laterally. Marked degenerative change in all three compartments was noted. The Garvey and Nephew knee system was utilized. Intramedullary guides were used on both the femur and the tibia. The femur was cut in 5 degrees of valgus and the tibia cut perpendicular to the long axis of the bone. Cuts were made sufficiently to correct the moderately severe valgus malalignment. Limited soft tissue balancing was also required. The femur was best suited for a size 4 femoral component. The tibia was also best suited for a size 4 tibial component. The patellar surface was resected and a 35-mm patellar button seemed to fit nicely. A trial reduction was performed using the tibial trial and a 9-mm tibial insert fit nicely. This resulted in full knee extension and flexion beyond 130 degrees with significant improvement in valgus malalignment and satisfactory overall knee stability. The patella seemed to track nicely and appears to be stable. The trial components were removed. The bony surfaces were thoroughly irrigated and dried. The intramedullary canal was blocked with bone block on both the femoral and tibial sides. Methyl methacrylate cement was mixed and injected [address] [address] OPERATIVE REPORT Name: NICOLE DUKE Room #: 438-P [facility] IN M.R.#: [id number] Admission: 05/04/21 Attend Phys: Parrish Newman MD Discharge: Date of : 47 Report #: [id number] into the porous surface of the proximal tibia. The permanent components were brought up on the field. The Garvey and Nephew size 4 BERENICE II left nonporous tibial baseplate was applied. This was impacted into position and seated nicely and appeared to be secure. Excess cement was removed around its margin. A size 9-mm LEGION cruciate retaining polyethylene insert was snapped into place, it seated nicely and appeared to be secure. A left size 4 LEGION cruciate retaining femoral component was then inserted, this was impacted into position using a small amount of cement at the distal anchor holes. The component seated nicely and appeared to be secure. A 35-mm BERENICE II patellar resurfacing button was selected, this was placed in the patella using appropriate anchor holes and cement. A patellar clamp was used to hold the patella until the cement had hardened. All excess cement was removed from around its margin. The knee was copiously irrigated. The tourniquet was deflated after a total tourniquet time of 58 minutes. Single Hemovac was left in the wound exiting through a separate stab incision. The fascia was closed with multiple #1 Vicryl sutures. The subcutaneous tissues were closed with 0 Monocryl. The skin was closed with skin toy. A sterile dressing was applied. The patient was awakened and returned to recovery room in good condition. <ELECTRONICALLY SIGNED> By: Parrish Newman MD 05/05/21 0811 [id number] [id number] Parrish Newman MD /nt
[2021-05-05 08:29] VITALS: BP 136/50
--- NOTE | 2021-05-05 10:40 | NUR ---
A/O X 4. ROOM AIR. LEFT FOREARM IV SALINE LOCKED-FLUSHES WELL. LEFT KNEE DANETTE DRAIN/DRESSING-DRY, CLEAN AND INTACT. HEMOVAC LEFT KNEE-DARK RED BLOOD NOTED. POLAR PACK TO LEFT KNEE. BEDBOUND. PAIN NOT BEING CONTROLLED WITH PRN PAIN MEDS. DR. LERNER CALLED AND NOTIFIED OF PAIN NOT BEING CONTROLLED AND OXYCODONE 10 MG IR ONETIME GIVEN.
--- NOTE | 2021-05-05 11:47 | NUR ---
Case opened to follow for dc planning. CM role introduced at bedside. Pt is a&ox4 and indicates that she lives alone since her spouse . Her primary contact is her dtr Candy who lives out of town. She indicates preference to go to SNF at dc. She is s/p tkr. Her pcp is Dr. Cruz and she indicates preference to go to [facility] of OP so he can follow her there. Referral faxed and called to [facility] and they can accept tomorrow or . OT carter requested.
[2021-05-05 16:01] VITALS: BP 148/52
[2021-05-05 19:25] VITALS: BP 134/52
[2021-05-06 03:39] VITALS: BP 147/60
--- NOTE | 2021-05-06 04:15 | NUR ---
RECEIVED CARE OF THIS PATIENT AT 1900. PATIENT ALERT AND ORIENTED X4. REMAINS ON BEDREST PER PATIENT'S REQUEST UNTIL TOMORROW. C/O PAIN, MED GIVEN. HAD 1 EPISODE OF EMISIS, MED GIVEN. DANETTE DRESSING ON L KNEE D/I. HAS TEDS, SCD'S AND POLAR ICE WELL. SLEPT OFF AND ON DURING NIGHT.
[2021-05-06] MEDS ORDERED: ENOXAPARIN40 MG/0.1 SUBQ (07:47)
[2021-05-06 07:50] VITALS: BP 137/54
[2021-05-06 08:28] LABS: HEMOGLOBIN 8.6 gm/dL (12.0-15.0); MCH 28.9 pg (26.0-34.0); MCV 87.5 fL (80.0-100.0); RBC 2.97 mil/uL (4.20-5.00); RDW 13.7 % (10.5-14.5); WBC 8.4 thou/uL (4.0-11.0)
[2021-05-06 08:33] VITALS: BP 137/54
--- NOTE | 2021-05-06 12:41 | NUR ---
ASSUMED PT CARE THIS AM. PT IS ALERT & ORIENTED X4. PT HAS IV SITE ON LFA SALINE LOCKED. PT HAS BILATERAL GISSELLE HOSES THIGH HIGH, DANETTE DRESSING, POLAR CARE AND SCD. PT IS ON ROOM AIR. REMOVED DRAIN THIS AM. GIVEN PAIN MEDICATION PRIOR WORKING WITH PHYSICAL THERAPY THIS AM. WILL CONTINUE TO MONITOR PT. FOLLOW POC.
--- NOTE | 2021-05-06 14:11 | NUR ---
DISCHARGE NOTE: KEVIN reviewed chart and spoke with nursing and attending physician. Pt is medically stable for discharge to [facility] today. KEVIN faxed discharge ppwk to [facility] and confirmed info was received with admissions liaison. Wheelchair van transportation scheduled for 1600 per facility's arrangements. KEVIN met with pt at bedside to provide update and discuss discharge plan. Pt is aware and in agreement with plan. KEVIN updated pt regarding transportation time. KEVIN spoke with pt's dtr, Candy, via phone to provide update and notify of discharge. Candy states she will meet pt over at [facility] later today. Chart copy requested from [employer]. Nursing provided with number to call report. No additional SW needs identified at this time, but is available to assist should needs arise.
--- NOTE | 2021-05-07 06:35 | D ---
[facility] [place] [address] DISCHARGE SUMMARY Name: NICOLE DUKE Room #: 438-P [facility] IN M.R.#: [id number] Admission: 05/04/21 Attend Phys: Parrish Newman MD Discharge: 05/06/21 Date of : 47 Report #: [id number] THIS REPORT FOR: cc: Wilner Cruz MD, Neal A. MD Clymer,Parrish Shi MD ~ DATE OF SERVICE: 05/07/2021 FINAL DIAGNOSIS: End-stage degenerative arthritis, left knee. OPERATION PROCEDURE: Left total knee arthroplasty. HISTORY: This 76-year-old female is frail, but still functions independently and lives alone in her own home. She has progressive degenerative arthritis involving both knees with symptoms much more severe on the left side. The patient and family have decided to go ahead with left total knee arthroplasty. HOSPITAL COURSE: The patient was admitted and taken to the operating room on 05/04/2021. She underwent left total knee replacement, which she tolerated well. Postoperatively, she did have quite a bit of discomfort and required extensive pain medications. Symptoms gradually improved. Her Hemovac drain was removed on the second day with minimal drainage. The dressing remains clean and dry. Her postoperative x-rays look good. The knee component seemed to be in good position and appeared to be stable. She has been able to begin ambulation with physical therapy assistance. She is demonstrating improving strength and range of motion of the left knee and appears to be stable. She has continued on her routine medications as directed by her primary care physician, Dr. Cruz. I note that she really does not have any significant assistance at home. She has children who live out of town and are here visiting only briefly. Given this, I feel she is really not able to return to her own home where she would be by herself and need to function independently. We have made arrangements for a short stay in an extended care facility where she can receive additional assistance and therapy. Her plan is to move to [facility], most probably on 05/07/2021. She will probably be there for 7 to 10 days to advance activity and gain strength until she is safe and independent to go back to her own home. DISCHARGE MEDICATIONS: Include verapamil 180 mg every day, Lexapro 20 mg every day, lisinopril 40 mg every day, pravastatin 20 mg every day, omeprazole 40 mg every day, Bentyl 10 mg every day, stool softener 100 mg daily, hydrocodone 10/325 one q. 4 hours as needed for pain, Lovenox 30 mg daily for 14 days. She will continue with therapy assistance and ambulation as tolerated. Patient or facility will call me should there be any problems or questions. I will plan to [address] [address] DISCHARGE SUMMARY Name: NICOLE DUKE Room #: 438-P [facility] IN M.R.#: [id number] Admission: 05/04/21 Attend Phys: Parrish Newman MD Discharge: 05/06/21 Date of : 47 Report #: [id number] see her back in one week for routine followup and in two weeks for suture removal. <ELECTRONICALLY SIGNED> By: Parrish Newman MD 05/07/21 [id number] Parrish Newman MD /nt
== END 2021-05-06 16:34 | DRG 470 ==
LOC: 4S 06:26 → ADMC 06:26 → EDSTATUS 06:54 → 4S 10:56 → PRE 13:31 → OR 13:54 → 4S 05-06 16:34
PROVIDERS: ADMIT Orthopaedic Surgery; ATTEND Orthopaedic Surgery
PROC: 0SRD0J9 Replacement of Left Knee Joint with Synthetic Substitute, Cemented, Open Approach (ICD-10-PCS; principal; 2021-05-04)
DX: M17.12 Unilateral primary osteoarthritis, left knee (principal); M21.062 Valgus deformity, not elsewhere classified, left knee; I10 Essential (primary) hypertension; F41.9 Anxiety disorder, unspecified; Z79.899 Other long term (current) drug therapy; Z88.0 Allergy status to penicillin; Z88.8 Allergy status to other drugs, medicaments and biological substances
CPT/HCPCS: 10102; 50010; 50101; 50415; 50954; 51130; 51225; 51412; 56525; 57095; 57103; 57104; 57180; 58449; 59024; 62110; 62900; 64043; 65060; 70005

== ENCOUNTER → 2021-07-13 | Outpatient (CLI) | payer OTHER ==
[~2021-07-13] VITALS: Ht 162.6 cm; Wt 81.8 kg
[~2021-07-13] MED LIST changes: +ENOXAPARIN40 MG/0.1 SUBQ
[2021-07-13 10:12] VITALS: BP 145/69
--- NOTE | 2021-07-13 10:26 | NUR ---
Pain Clinic Assessment: 1. History of Osteoarthritis: KNEES SPINE History of Rheumatoid Arthritis: DENIES 2. Height: 5 ft. 4 in. 162.6 cm. Weight: 180.4 lb. oz. 81.829 kg. Patient's BMI: 31.0 3. Vital Signs: BP: 145/69 Pulse: 76 Resp: 20 Temp: 02 Sat: 98 ECG Mon: 4. Pain Intensity: 3 5. Fall Risk: Dizziness: N Needs help standing or walking: N Fallen in the last 3 months: N Fall risk comments: 6. Patient on Blood Thinner: None 7. History of Hypertension: Y 8. Opioid Therapy greater than 6 weeks: Y Opiate Contract Signed: 01/28/16 9. Risk Assessment Tool Provided: LOW-1 10. Functional Assessment Tool: 11. Recreational Drug Use: Never Drug Type: Tobacco Use: Never Smoker Tobacco Type: Amount or Packs/day: How Many Years: Alcohol Use: No Frequency: Quant:
== END ==
LOC: PAIN 08:57
PROVIDERS: ATTEND Clinical Nurse Specialist Adult Health
DX: M54.50 Low back pain, unspecified (principal); M19.90 Unspecified osteoarthritis, unspecified site; Z88.8 Allergy status to other drugs, medicaments and biological substances; Z88.0 Allergy status to penicillin; Z79.899 Other long term (current) drug therapy